=== PATIENT | female | born 1990 | race Caucasian/White ===

== ENCOUNTER 2016-11-05 20:17 | Emergency (ER) | payer OTHER ==
[~2016-11-05] VITALS: Ht 172.7 cm; Wt 143.4 kg
[~2016-11-05 20:17] MED LIST: ACET-1175 PO; IBUP-1050 PO
[2016-11-05 20:19] VITALS: TEMP 37; Ht 172.7 cm; Wt 143.4 kg
[2016-11-05] MEDS ORDERED: SODIUM CHLORIDE 0.9% 1000ML 1,000 ML IV STA (20:34)
[2016-11-05] MEDS ORDERED: ONDANSETRON INJ 2 MG/ML 2 ML VIAL IV STA (20:34)
--- NOTE | 2016-11-05 20:41 | EMERGENCY ROOM VISIT NOTE ---
History First contact with patient: 20:29 Chief Complaint: GI ASSESSMENT Stated Complaint: VOMITING,ABD CRAMPING Nursing Triage Summary: pt c/o abd pain and nausea/vomiting since this morning. states "i think i have food poisioning." states she ate something that "gave me food posioining last time. this cortez tray with chips and salsa." states "I was crying, I had to walk out of work." pt states n/v began at 11:30am, associates diarrhea. denies urinary symptoms. rates pain 6/10. History of Present Illness The patient is a 26 year old female who presents to the Emergency Room with complaints of nausea, vomiting and diarrhea. The patient states her symptoms started around noon. She states she developed abdominal cramping and vomiting. She states that she develops the cramping and has an episode of emesis and then feels better for a short time. She has also had diarrhea. She rates her discomfort as 6/10. She denies any fevers. She denies any pain in her chest or trouble breathing. She denies any urinary symptoms. She denies any known sick contacts. She denies any recent travel. She denies being at any Camp's or picnics recently. She denies recent antibiotic use. Review of Systems A 10 system review of systems was completed with positives and pertinent negatives listed in the HPI. Past Medical/Surgical History Medical Problems: (1) Tobacco Use Disorder Surgical Problems: (1) History of delivery (2) No history of previous surgery Social History Problems: (1) Morbid obesity with BMI of 45.0-49.9, adult Family History FH: hypertension Social History Smoking Status: Current Every Day Smoker Alcohol Use: none Drug Use: none Marital Status: Occupation Status: unemployed Current/Historical Medications Scheduled Ondasetron Odt (Zofran Odt), 4 MG SL Q6H Physical Exam Vital Signs Date Time Temp Pulse Resp B/P (MAP) Pulse Ox O2 Delivery O2 Flow Rate FiO2 11/05/16 22:07 67 18 118/54 97 11/05/16 20:19 37.0 86 18 96 Room Air Physical Exam VITALS: Vitals are noted on the nurse's note and reviewed by myself. Vital signs stable. GENERAL: This is a 26-year-old female, in no acute distress, nondiaphoretic, well-developed well-nourished. SKIN: The skin was without rashes, erythema, edema, or bruising. There is no tenting of the skin. Capillary reflex less than 2 seconds. HEAD: Normocephalic atraumatic. EARS: The external ears are normal in appearance. EYES: Pupils equal round and reactive to light and accommodation. Conjunctivae without injection, sclerae without icterus. Extraocular movements intact. NOSE: Patent, turbinates without inflammation or discharge. MOUTH: Mucous membranes moist. Tonsils are not enlarged. Pharynx without erythema or exudate. Uvula midline. Airway patent. Tongue does not deviate. NECK: Supple without nuchal rigidity. No lymphadenopathy. No thyromegaly. Cervical spine is nontender. No JVD. HEART: Regular rate and rhythm without murmurs gallops or rubs. LUNGS: Clear to auscultation bilaterally without wheezes, rales or rhonchi. No retractions or accessory muscle use. ABDOMEN: Positive bowel sounds x 4. Soft, nontender, without masses or organomegaly. MUSCULOSKELETAL: No muscle atrophy, erythema, or edema noted. Full range of motion in all extremities. Strength 5/5 throughout. NEURO: Patient was alert and oriented to person place and time. No focal neurological deficits. Medical Decision & Procedures Laboratory Results 11/05/16 20:45 Red Blood Count 4.72, Mean Corpuscular Volume 89.4, Mean Corpuscular Hemoglobin 30.5, Mean Corpuscular Hemoglobin Concent 34.1, Mean Platelet Volume 10.3, Neutrophils (%) (Auto) 83.4, Lymphocytes (%) (Auto) 11.3, Monocytes (%) (Auto) 4.7, Eosinophils (%) (Auto) 0.2, Basophils (%) (Auto) 0.1, Neutrophils # (Auto) 13.73, Lymphocytes # (Auto) 1.86, Monocytes # (Auto) 0.78, Eosinophils # (Auto) 0.03, Basophils # (Auto) 0.01 11/05/16 20:45 Test 11/05/16 20:45 11/05/16 21:37 White Blood Count 16.46 K/uL (4.8-10.8) Red Blood Count 4.72 M/uL (4.2-5.4) Hemoglobin 14.4 g/dL (12.0-16.0) Hematocrit 42.2 % (37-47) Mean Corpuscular Volume 89.4 fL (80-100) Mean Corpuscular Hemoglobin 30.5 pg (25-34) Mean Corpuscular Hemoglobin Concent 34.1 g/dl (32-36) Platelet Count 310 K/uL (130-400) Mean Platelet Volume 10.3 fL (7.4-10.4) Neutrophils (%) (Auto) 83.4 % Lymphocytes (%) (Auto) 11.3 % Monocytes (%) (Auto) 4.7 % Eosinophils (%) (Auto) 0.2 % Basophils (%) (Auto) 0.1 % Neutrophils # (Auto) 13.73 K/uL (1.4-6.5) Lymphocytes # (Auto) 1.86 K/uL (1.2-3.4) Monocytes # (Auto) 0.78 K/uL (0.11-0.59) Eosinophils # (Auto) 0.03 K/uL (0-0.5) Basophils # (Auto) 0.01 K/uL (0-0.2) RDW Standard Deviation 42.7 fL (36.4-46.3) RDW Coefficient of Variation 13.1 % (11.5-14.5) Immature Granulocyte % (Auto) 0.3 % Immature Granulocyte # (Auto) 0.05 K/uL (0.00-0.02) Anion Gap 4.0 mmol/L (3-11) Est Creatinine Clear Calc Drug Dose 201.2 ml/min Estimated GFR () 142.7 Estimated GFR (Non- 123.2 BUN/Creatinine Ratio 12.0 (10-20) Calcium Level 8.9 mg/dl (8.5-10.1) Total Bilirubin 0.3 mg/dl (0.2-1) Aspartate Amino Transf (AST/SGOT) 26 U/L (15-37) Alanine Aminotransferase (ALT/SGPT) 45 U/L (12-78) Alkaline Phosphatase 83 U/L (45-117) Total Protein 7.3 gm/dl (6.4-8.2) Albumin 3.5 gm/dl (3.4-5.0) Globulin 3.8 gm/dl (2.5-4.0) Albumin/Globulin Ratio 0.9 (0.9-2) Lipase 99 U/L (73-393) Urine Test NEG (NEG) Medications Administered Medications (Trade) Dose Ordered Sig/Timothy Route Start Time Stop Time Status Last Admin Dose Admin Sodium Chloride 1,000 ml @ 999 mls/hr Q1H1M STAT IV 11/05/16 20:34 11/05/16 21:34 DC 11/05/16 20:47 999 MLS/HR Ondansetron HCl (Zofran Inj) 4 mg NOW STAT IV 11/05/16 20:34 11/05/16 20:36 DC 11/05/16 20:52 4 MG Ondansetron HCl (ZOFRAN ODT 4MG Home Pack) 1 homepack UD ONCE PO 11/05/16 21:45 11/05/16 21:46 DC 11/05/16 22:03 1 HOMEPACK ED Course The patient was seen and examined. Previous visits were reviewed. The patient does not have a fever. She does have a leukocytosis of 16,000. She does not have any significant electrolyte abnormalities. The patient had some minimal diffuse tenderness on initial examination. She was hydrated with normal saline 1 L She was given 4 mg IV Zofran. She stated her symptoms had markedly improved. I did perform a repeat abdominal examination after the above treatment. The patient has no abdominal tenderness on examination. Particularly, there is no right lower quadrant tenderness or tenderness over McBurney's point. The patient was advised that if she develops localized tenderness particularly in the right lower quadrant she should return to the emergency department. She was given a prescription for Zofran. She should follow with her family doctor next week if she is not improving. She should return to the ER with any worsening symptoms. The case was discussed with who agrees with the assessment and treatment plan. Medical Decision DIFFERENTIAL DIAGNOSIS: Hepatitis, cholecystitis, cholangitis, biliary colic, pancreatitis, pneumonia, subdiaphragmatic abscess, appendicitis, inguinal hernia , nephrolithiasis, inflammatory bowel disease, mesenteric adenitis, peptic ulcer disease, GERD, gastritis, pancreatitis, myocardial infarction, pericarditis, ruptured aortic aneurysm, appendicitis, gastroenteritis, bowel obstruction, splenic infarct, diverticulitis, mesenteric ischemia, metabolic, peritonitis, among others. Medication Reconcilliation Current Medication List: was personally reviewed by me Blood Pressure Screening Patient's blood pressure: Normal blood pressure Blood pressure disposition: Did not require urgent referral Impression Primary Impression: Nausea vomiting and diarrhea Departure Information Dispostion Home / Self-Care Condition GOOD Prescriptions Ondasetron Odt (ZOFRAN ODT) 4 Mg Tab 4 MG SL Q6H for Nausea, #10 TAB Prov: Estrellita Cruz PA-C 11/05/16 Referrals No Doctor, Assigned (PCP) Forms HOME CARE DOCUMENTATION FORM, IMPORTANT VISIT INFORMATION, Work Instructions Return To Work: 3 days Patient Instructions ED Food Poison Or Gastroenteritis, ED Nausea Vomiting, [facility] Additional Instructions Zofran as prescribed, as needed for nausea and vomiting Return with pain that localizes to the right lower abdomen, fevers or generalized worsening symptoms
[2016-11-05 20:55] LABS: BASO % 0.1 %; BASO ABS # 0.01 K/uL (0-0.2); COMPLETE YES; EOS % 0.2 %; HEMATOCRIT 42.2 % (37-47); IG% 0.3 %; LYMPH % 11.3 %; LYMPH ABS # 1.86 K/uL (1.2-3.4); MEAN CELL VOLUME 89.4 fL (80-100); MEAN CORPUSCULAR HEMOGLOBIN 30.5 pg (25-34); MEAN CORPUSCULAR HGB CONC 34.1 g/dl (32-36); MEAN PLATELET VOLUME 10.3 fL (7.4-10.4); MONO % 4.7 %; NEUT % 83.4 %; PLATELET COUNT 310 K/uL (130-400); RED BLOOD COUNT 4.72 M/uL (4.2-5.4); WHITE BLOOD COUNT 16.46 K/uL (4.8-10.8)
[2016-11-05 21:15] LABS: CALCIUM 8.9 mg/dl (8.5-10.1); CREATININE 0.64 mg/dl (0.60-1.20); POTASSIUM 3.7 mmol/L (3.5-5.1)
[2016-11-05 21:18] LABS: ALB/GLOB RATIO 0.9 (0.9-2)
[2016-11-05] MEDS ORDERED: ONDA4TAB10 SL (21:42)
[2016-11-05] MEDS ORDERED: ONDANSETRON HOME PACK 4MG OD TAB PO ONE (21:45)
[2016-11-05 22:07] VITALS: BP 118/54; PULSE 67; O2SAT 97
== END 2016-11-05 22:07 | disposition home or self-care (01) ==
LOC: C.EDB 20:18 → C.EDC 22:07
DX: R11.2 Nausea with vomiting, unspecified (principal); R19.7 Diarrhea, unspecified; R07.9 Chest pain, unspecified; R10.9 Unspecified abdominal pain; F17.200 Nicotine dependence, unspecified, uncomplicated; E66.01 Morbid (severe) obesity due to excess calories; Z82.49 Family history of ischemic heart disease and other diseases of the circulatory system

== ENCOUNTER 2017-11-16 00:12 | Emergency (ER) | payer OTHER ==
[~2017-11-16] VITALS: Ht 172.7 cm; Wt 141.0 kg
[2017-11-16 00:18] VITALS: TEMP 36.7; Ht 172.7 cm; Wt 141.0 kg
--- NOTE | 2017-11-16 00:39 | EMERGENCY ROOM VISIT NOTE ---
History Report prepared by Debbie: Eric Mulligan Under the Supervision of: Dr. Maria Esther Hanna D.O. First contact with patient: 00:31 Chief Complaint: SHOULDER PAIN Stated Complaint: SHOULDER ARM COLLERBONE PAIN History of Present Illness The patient is a 27 year old female who presents to the Emergency Room with complaints of constant left shoulder pain beginning six weeks ago. The patient states that she developed left shoulder pain six weeks ago that she thought was a pulled muscle in her neck. She notes that her pain started between her shoulder blades. She reports that her pain shoots into her left collar bone and down the back of her left arm. The patient states that her pain worsens with movement but she notes that her pain is not as bad when she lies down. She denies any numbness/tingling. She reports that she does not have any prior injuries and trauma to her left shoulder. The patient states that she works 10- 14 hours every day, and she notes that she does a lot of lifting and pulling at work. She reports that she has been taking Tylenol occasionally for her symptoms. Source of History: patient Onset: six weeks ago Position: shoulder (left) Timing: constant Modifying Factors (Worsening): movement Modifying Factors (Relieving): other (lying down) Note: The patient also complains of pain in her left collar bone and of left arm pain. She denies any numbness/tingling. Review of Systems See HPI for pertinent positives & negatives. A total of 10 systems reviewed and were otherwise negative. Past Medical & Surgical Medical Problems: (1) Tobacco Use Disorder Surgical Problems: (1) History of delivery (2) No history of previous surgery Social History Problems: (1) Morbid obesity with BMI of 45.0-49.9, adult Family History FH: hypertension Social History Smoking Status: Current Every Day Smoker Alcohol Use: none Drug Use: none Marital Status: single Housing Status: lives with family Occupation Status: employed Current/Historical Medications No Active Prescriptions or Reported Meds Allergies Coded Allergies: Amoxicillin (Verified Allergy, Mild, UNKNOWN, 11/16/17) Clavulanic Acid (Verified Allergy, Mild, UNKNOWN, 11/16/17) Latex (Verified Allergy, Unknown, RASH, 11/16/17) Sulfa Drugs (Verified Allergy, Unknown, HIVES, 11/16/17) Physical Exam Vital Signs Date Time Temp Pulse Resp B/P (MAP) Pulse Ox O2 Delivery O2 Flow Rate FiO2 11/16/17 01:41 83 18 145/91 98 11/16/17 00:18 36.7 72 20 130/81 98 Room Air Physical Exam GENERAL: alert, well appearing, well nourished, no distress, non-toxic, obese. EYE EXAM: normal conjunctiva, PERRL and EOM's grossly intact OROPHARYNX: no exudate, no erythema, lips, buccal mucosa, and tongue normal and mucous membranes are moist NECK: supple, no nuchal rigidity, no adenopathy, non-tender, full ROM, no evidence of trauma. LUNGS: Clear to auscultation. Normal chest wall mechanics HEART: no murmurs, S1 normal and S2 normal ABDOMEN: abdomen soft, non-tender, normo-active bowel sounds, no masses, no rebound or guarding. BACK: Back is symmetrical on inspection and there is no deformity, no midline tenderness, no CVA tenderness. SKIN: no rashes and no bruising UPPER EXTREMITIES: upper extremities are grossly normal. Normal pulses bilaterally, no evidence of trauma, no joint effusions, pain with palpation at the AC joint and along the trapezius in the posterior shoulder. No pain with palpation of humeral head or more distal upper extremity. Full ROM but pain during active and passing ROM testing, empty can test negative, normal sensation. LOWER EXTREMITIES: No pitting edema. NEURO EXAM: Normal sensorium, cranial nerves II-XII grossly intact, normal speech, no gross weakness of arms, no gross weakness of legs. Medical Decision & Procedures ER Provider Diagnostic Interpretation: Radiology results have been interpreted by and reviewed by me. 3 VIEW LEFT SHOULDER X-RAY: No fracture, dislocation, and AC separation. 1 VIEW CHEST X-RAY: No cardiomegaly, effusions, wide mediastinum, focal consolidation, pneumothorax , and pulmonary edema. Medications Administered Medications (Trade) Dose Ordered Sig/Timothy Route Start Time Stop Time Status Last Admin Dose Admin Ketorolac Tromethamine (Toradol Inj) 60 mg NOW STAT IM 11/16/17 00:44 11/16/17 00:46 DC 11/16/17 00:54 60 MG Lidocaine (Lidoderm Patch 5%) 1 patch NOW STAT TD 11/16/17 00:44 11/16/17 00:46 DC 11/16/17 00:55 1 PATCH ECG Per My Interpretation Indication: back/shoulder pain Rate (beats per minute): 82 Rhythm: sinus rhythm Findings: no acute ischemic change, no ectopy, other (Normal axis, normal intervals) ED Course 0032: The patient was evaluated in room B6. A complete history and physical exam was performed. 0044: Lidocaine 1 patch TD, Toradol Inj 60mg IM 0127: Upon reevaluation, the patient is feeling better. I discussed the findings and the treatment plan with the patient. She verbalizes agreement and understanding. The patient was discharged home. Medical Decision Differential diagnoses include: muscle strain, muscle spasm, rotator cuff injury , cervical radiculopathy, trauma, brachial plexitis, and AC separation as well as others. Patient well-appearing here despite complaints. No recent trauma. No weakness , no paresthesias to suggest nerve impingement or cervical radiculopathy. Likely chronic overuse injury or musculoskeletal strain due to repetitive use at work. Discussed with patient limiting lifting, follow-up with family doctor , possible need for orthopedics evaluation if symptoms did not improve, symptoms to watch and return for, she verbalized understanding and was agreeable with plan. I do not suspect occult cardiac or pulmonary pathology, do not suspect occult vascular pathology. Medication Reconcilliation Current Medication List: was personally reviewed by me Blood Pressure Screening Patient's blood pressure: Elevated blood pressure Blood pressure disposition: Elevated BP felt to be situational Impression Primary Impression: Left shoulder pain Additional Impression: Upper back strain Scribe Attestation The scribe's documentation has been prepared under my direction and personally reviewed by me in its entirety. I confirm that the note above accurately reflects all work, treatment, procedures, and medical decision making performed by me. Departure Information Dispostion Home / Self-Care Prescriptions No Active Prescriptions or Reported Meds Referrals No Doctor, Assigned (PCP) Forms HOME CARE DOCUMENTATION FORM, IMPORTANT VISIT INFORMATION Patient Instructions My [facility] [employer] Additional Instructions Please try to limit any lifting with your left arm. You may use Tylenol and ibuprofen as needed for pain. You may also apply the pain patch, which is now [id number], to the area of the worst pain. If you take ibuprofen/Advil/ Aleve/Motrin, these are all types of anti-inflammatories, make sure you are drinking plenty of water and do not take them on an empty stomach. If you develop increasing neck pain, chest pain, trouble breathing, numbness or tingling, feel the arm is weaker you unable to use it, develop swelling of the arm, redness or rash of the arm, you have any other new concerns, please return the emergency room. Problem Qualifiers Primary Impression: Left shoulder pain Chronicity: chronic Qualified Codes: M25.512 - Pain in left shoulder; G89.29 - Other chronic pain Additional Impression: Upper back strain Encounter type: initial encounter Qualified Codes: S29.012A - Strain of muscle and tendon of back wall of thorax, initial encounter
[2017-11-16] MEDS ORDERED: LIDODERM (LIDOCAINE) PATCH 5% TD STA (00:44)
[2017-11-16] MEDS ORDERED: KETOROLAC TROMETHAMINE 60 MG/2 ML VIAL IM STA (00:44)
[2017-11-16 01:41] VITALS: BP 145/91; PULSE 83; O2SAT 98
--- NOTE | 2017-11-16 06:54 | DIAGNOSTIC IMAGING REPORT ---
CHEST ONE VIEW PORTABLE CLINICAL HISTORY: chest pain pain COMPARISON STUDY: 10/21/2011 FINDINGS: The bones soft tissues and hemidiaphragms are normal. The cardiomediastinal silhouette is normal. The lungs are clear. The pulmonary vasculature is normal. IMPRESSION: Negative chest. The above report was generated using voice recognition software. It may contain grammatical, syntax or spelling errors. Electronically signed by: Faisal Ricardo M.D. 11/16/2017 6:52 AM Dictated Date/Time: 11/16/2017 6:52 AM
--- NOTE | 2017-11-16 06:55 | DIAGNOSTIC IMAGING REPORT ---
L SHOULDER MIN 2 VIEWS ROUTINE CLINICAL HISTORY: pain pain COMPARISON: None. DISCUSSION: The bones and joint spaces appear intact. There is no evidence of fracture, dislocation or bony disease. There is no evidence for soft tissue swelling. IMPRESSION: Negative study. The above report was generated using voice recognition software. It may contain grammatical, syntax or spelling errors. Electronically signed by: Faisal Ricardo M.D. 11/16/2017 6:54 AM Dictated Date/Time: 11/16/2017 6:53 AM
== END 2017-11-16 01:42 | disposition home or self-care (01) ==
LOC: C.EDB 00:13
DX: M25.512 Pain in left shoulder (principal); S29.012A Strain of muscle and tendon of back wall of thorax, initial encounter; X58.XXXA Exposure to other specified factors, initial encounter; E66.9 Obesity, unspecified; F17.200 Nicotine dependence, unspecified, uncomplicated; Z88.1 Allergy status to other antibiotic agents; Z88.2 Allergy status to sulfonamides; Z91.040 Latex allergy status

== ENCOUNTER 2018-12-29 08:23 | Observation (INO) ==
[2018-12-29] MEDS ORDERED: HYDROmorphone INJ 0.5 MG/0.5 ML SYR IV STA ×2 (09:43→11:42)
[2018-12-29] MEDS ORDERED: LORazepam 0.5 MG/1 ML VIAL IV STA (09:43)
[2018-12-29] MEDS ORDERED: KETOROLAC 30 MG/ML VIAL IV STA (09:43)
[2018-12-29] MEDS ORDERED: ONDANSETRON INJ 2 MG/ML 2 ML VIAL IV STA (09:43)
[2018-12-29 10:06] LABS: Basophils # (auto) 0.01 K/uL (0-0.2); Basophils % (auto) 0.1 %; Eosinophils # (auto) 0.03 K/uL (0-0.5); Eosinophils % (auto) 0.3 %; Hematocrit (blood only) 38.3 % (37-47); Hemoglobin 12.7 g/dL (12.0-16.0); Immature Granulocytes # (auto) 0.01 K/uL (0.00-0.02); Immature Granulocytes % (auto) 0.1 %; Lymphocytes # (auto) 1.95 K/uL (1.2-3.4); Lymphocytes % (auto) 20.2 %; Mean Corpuscular Hgb Conc 33.2 g/dL (32-36); Mean Corpuscular Volume 90.3 fL (80-100); Mean Platelet Volume 9.7 fL (7.4-10.4); Monocytes # (auto) 0.82 K/uL (0.11-0.59); Monocytes % (auto) 8.5 %; Neutrophils # (auto) 6.85 K/uL (1.4-6.5); Neutrophils % (auto) 70.8 %; Platelet Count 327 K/uL (130-400); RDW Coefficient of Variation 13.2 % (11.5-14.5); RDW Standard Deviation 43.3 fL (36.4-46.3); Red Blood Count 4.24 M/uL (4.2-5.4); White Blood Count 9.67 K/uL (4.8-10.8)
[2018-12-29 10:19] LABS: Pregnancy Test, Serum Negative (Negative)
[2018-12-29 10:25] LABS: BUN Creatinine Ratio 11.9 (10-20); Blood Urea Nitrogen 8 mg/dl (7-18); Carbon Dioxide 22 mmol/L (21-32); Chloride 110 mmol/L (98-107); Glucose 108 mg/dl (70-99); Potassium 3.5 mmol/L (3.5-5.1); Sodium 139 mmol/L (136-145)
[2018-12-29] MEDS ORDERED: DEXAMETHASONE SOD INJ 4 MG/ML VIAL IV STA (12:22)
[2018-12-29] MEDS ORDERED: LIDOCAINE 5% 1 PATCH TD SCH (13:30)
--- NOTE | 2018-12-29 13:46 | History & Physical Report ---
Date of Service December 29, 2018 Assessment & Plan (1) Intractable low back pain: - Presented with low back pain -- possibly related to lumbar strain vs. herniated disc. - XR of L-spine and right hip negative; will order MRI of lumbar spine. - ESR and CRP both pending. - Ortho spine, Dr. Merchant, consulted. - Tylenol 1 gm PO q8hr scheduled; Toradol prn mod pain and Dilaudid 0.5 mg IV q6hr prn severe pain. - K-pad for heat application to lower spine/back; Lidocaine patch for topical p ain relief. - Will start Gabapentin 100 mg BID for radiculopathy -- has been on medication in the past. Titrate as tolerated. - Received Decadron 10 mg IV in the ER; continue Decadron 8 mg IV q8hr over next 24 hours. (2) Lumbar disc disease with radiculopathy: - As noted above. (3) Obesity: - Encourage weight loss and exercise. - Pt. reports she has been exercising daily since October. (4) DVT prophylaxis: - SCDs; Lovenox daily. Dispo: Med/surg for evaluation of low back pain and pain control. History of Present Illness Chief Complaint: Back pain Primary Care Provider: Samy Sky MD Ms. Aragon is a 28 year old female with past medical history of and tubal ligation who presented to the ER with intractable back pain. She was initially diagnosed with back pain & right leg radiculopathy in January 2018. Patient had multiple ER visits last fall and completed a steroid taper along with a short course of Gabapentin. MRI of L-spine on 02/12/18 showed disc extrusion at L4-5 with slight caudal migration with severe effacement of right lateral recess and mass effect on right L5 and S1 nerve roots. She was also evaluated by Dr. Guo during previous visits. Pt. reports back pain had improved overall. She has been exercising daily -- currently doing the 21 day fix work out and usually works out every day of the week. She did yoga yesterday and did not have any back pain or radiculopathy symptoms. Pt. woke up this morning at 2:30 am with severe low back and right hip pain. Pain is constant and radiates down her right leg to the right 5th toe. She has trouble ambulating due to right leg pain. Pain is described as a sharp, shooting pain in her right leg and constant dull pressure in her right hip. Denies chest pain, SOB, constipation (last BM was this morning), urinary retention or incontinence, saddle anesthesia, dysuria or hematuria, LE edema. ER course: Pt. received Dilaudid 0.5 mg IV, Toradol 10 mg IV, Dexamethasone 10 mg IV, Ativan 0.5 mg IV, Zofran 4 mg IV with no improvement. Will be admitted for further evaluation of lumbar spinal pain & radiculopathy. Allergies Allergy/AdvReac Type Severity Reaction Status Date / Time latex Allergy Severe Hives Verified 12/29/18 10:29 Sulfa (Sulfonamide Allergy Severe swelling Verified 12/29/18 10:29 Antibiotics) of throat amoxicillin Allergy Mild UNKNOWN Verified 12/29/18 10:29 clavulanic acid Allergy Mild UNKNOWN Verified 12/29/18 10:29 Home Medications Home Medications Medication Instructions Recorded Confirmed Type multivitamin 1 tab PO QAM 01/18/18 01/02/19 History acetaminophen [Tylenol Extra 1,000 mg PO Q8H PRN #1 tab 01/01/19 01/02/19 Rx Strength] baclofen 10 mg PO TID #20 tab 01/01/19 01/02/19 Rx gabapentin 600 mg PO BID #60 tab 01/01/19 01/02/19 Rx hydrocodone-acetaminophen [[place]] 1 tab PO Q6H PRN #20 tab 01/01/19 01/02/19 Rx lidocaine 1 patch TRANSDERMAL QAM #15 ea 01/01/19 01/02/19 Rx methylprednisolone 4 mg PO QID #10 tab 01/01/19 01/02/19 Rx Past Med/Surg History Medical History Abdominal cramping (Acute 09/15/13) Insect bite (Acute) Left lumbar radiculopathy (Acute) Lumbar back pain with radiculopathy affecting right lower extremity (Acute) Morbid obesity with BMI of 45.0-49.9, adult (Chronic) labor (Acute 10/01/13) Right lumbar radiculitis (Acute) Encounter for smoking cessation counseling (Inactive) Hip pain (Inactive) Leg pain (Inactive) Surgical History History of delivery Family History Other No significant family history Social History Preferred Language: [place] Verdean Communication Ability: Effective Beliefs That Will Affect Care: None marital status: Single Current Living Situation: Family Current Living Situation Comment: "4 kids, Boyfriend, and I" current occupational status: unemployed Feels Safe at Home: Yes Smoking Status: Former smoker Tobacco Type: cigarettes ; Age Started Using Tobacco: 18 ; Age Quit Using Tobacco: 28 ; packs per day: 1 ; Hx Alcohol Use: No Hx Substance Use: No Review of Systems Review of Systems: All systems reviewed & are unremarkable except as noted in HPI & below Constitutional: + fatigue and + weakness; no fever, no chills and no anorexia Respiratory: no cough, no dyspnea, no dyspnea on exertion and no wheezing Cardiovascular: no chest pain, no palpitations, no lightheadedness and no edema Gastrointestinal: no abdominal pain, no nausea, no vomiting and no constipation Genitourinary: no dysuria, no difficulty urinating, no urinary frequency, no urinary incontinence and no hematuria Musculoskeletal: + back pain, + radicular pain and + limited range of motion; no joint pain, no myalgia and no body aches Integumentary: no non-healing lesions Neurologic: + numbness and + radiating pain; no gait abnormality, no dizziness and no headache(s) Psychiatric: + anxiety Physical Exam Physical Exam: General: Obese female, in no acute distress. HEENT: NC/AT; PERRLA with EOMI; Vansant conjunctiva, MMM. No erythema of posterior pharynx Neck: Supple and nontender Cardiac: RRR Lungs: CTA bilaterally Abdomen: Bowel normoactive X 4; Nontender to palpation Back: Tender to palpation over right lower back, no specific area identified. Extremities: Warm. No edema present. Neuro: +2/5 muscle strength on LLE, +1/5 muscle strength on RLE. No other deficits noted on exam. Skin: No rash Results & Data Vital Signs (Past 12 Hours) Vital Signs Temp Pulse Pulse Resp BP BP Pulse Ox 12/29/18 13:27 72 18 126/80 97 12/29/18 11:54 76 16 142/73 H 97 12/29/18 11:27 66 18 134/87 95 12/29/18 10:20 99 12/29/18 10:17 74 20 136/77 97 12/29/18 08:47 36.5 C 98 H 20 102/59 L 100 Laboratory Results Lab Results 12/29/18 12/29/18 12/29/18 Range/Units 09:51 09:51 09:51 WBC 9.67 (4.8-10.8) K/uL RBC 4.24 (4.2-5.4) M/uL Hgb 12.7 (12.0-16.0) g/dL Hct 38.3 (37-47) % MCV 90.3 (80-100) fL MCH 30.0 (25-34) pg MCHC 33.2 (32-36) g/dL RDW Std Deviation 43.3 (36.4-46.3) fL RDW Coeff of Gracia 13.2 (11.5-14.5) % Plt Count 327 (130-400) K/uL MPV 9.7 (7.4-10.4) fL Immature Gran % (Auto) 0.1 % Neut % (Auto) 70.8 % Lymph % (Auto) 20.2 % [place] % (Auto) 8.5 % Eos % (Auto) 0.3 % Baso % (Auto) 0.1 % Immature Gran # (Auto) 0.01 (0.00-0.02) K/uL Neut # (Auto) 6.85 H (1.4-6.5) K/uL Lymph # (Auto) 1.95 (1.2-3.4) K/uL [place] # (Auto) 0.82 H (0.11-0.59) K/uL Eos # (Auto) 0.03 (0-0.5) K/uL Baso # (Auto) 0.01 (0-0.2) K/uL Sodium 139 (136-145) mmol/L Potassium 3.5 (3.5-5.1) mmol/L Chloride 110 H (98-107) mmol/L Carbon Dioxide 22 (21-32) mmol/L Anion Gap 7.0 (3-11) BUN 8 (7-18) mg/dl Creatinine 0.68 (0.6-1.2) mg/dl Est Cr Clr Drug Dosing Not Reportable Est GFR ( Amer) 138.0 Est GFR (Non-Af Amer) 119.0 BUN/Creatinine Ratio 11.9 (10-20) Glucose 108 H (70-99) mg/dl Calcium 9.0 (8.5-10.1) mg/dl HCG, Qual Negative (Negative) Code Status & VTE Plan Code Status FULL CODE VTE Prophylaxis Plan VTE Prophylaxis will be ordered: Yes Supervising Physician Co-Signing Physician Notes During my face to face encounter, I performed a history and physical examination on the patient. I answered all of the patient s questions and concerns. Discussed admission plan with patient and APC. Will admit patient for low back pain. Will consult ortho spine surgeon. Will get an MRI to assess for disc herniation. PG Care Time/CCT Total # of Minutes Spent Total Time Spent with Patient: Total time spent is greater than 50% in coordinat ion of care (as documented) at patient's floor/unit and/or counseling patient:
--- NOTE | 2018-12-29 14:18 | XRay Report ---
RIGHT HIP 2 VIEWS HISTORY: Right hip pain COMPARISON: Right hip 01/17/2018. FINDINGS: There is no fracture or dislocation. Soft tissues are unremarkable. Cartilage spaces are ma intained. The visualized pelvic bones are intact. IMPRESSION: No significant abnormality within the right hip. Electronically signed by: Jim Wright M.D. 12/29/2018 2:17 PM
--- NOTE | 2018-12-29 14:20 | XRay Report ---
LUMBAR SPINE 3 VIEWS HISTORY: Back pain COMPARISON: Lumbar spine 03/13/2018. FINDINGS: There is no fracture. No subluxation. Mild disc space at L4-L5 and L5-S1. The sacrum appea rs intact. Multiple gallstones are again noted. IMPRESSION: 1. No fracture or subluxation within the lumbar spine. 2. Mild degenerative disc disease at L4-L5 and L5-S1. 3. Cholelithiasis. Electronically signed by: Jim Wright M.D. 12/29/2018 2:19 PM
[2018-12-29] MEDS ORDERED: HYDROmorphone INJ 0.5 MG/0.5 ML SYR IV PRN ×2 (14:55→18:28)
[2018-12-29] MEDS ORDERED: ONDANSETRON INJ 2 MG/ML 2 ML VIAL IV PRN (14:55)
--- NOTE | 2018-12-29 16:15 | Emergency Department Note ---
Entered by Mason Baez acting as a scribe for History of Present Illness General Chief complaint: Back Injury/Pain Stated complaint: SEVERE BACK PAIN INTO RT LEG Source: patient History of Present Illness Onset (ago): hour(s) (7.5) Location: back and right Pain Consistency: + constant Maximum Pain Intensity: 10 Quality: + sharp Relieved By: + other (laying down) Exacerbated By: + movement and + other (sitting up) Associated symptoms: + denies other symptoms (loss of feeling, losing control of her bowels/bladder, trouble urinating, fevers, lifting anything heavy) and + other (right leg pain that shoots down to her toes) The patient is a 28 y/o female who presents to the ED w/ CC of constant, sharp, right sided back pain that shoots down to her right toes beginning 7.5 hours ago. The patient states she had a herniated disk last year and it feels similar to that. She denies sleeping on a soft mattress and lifting anything heavy. The patient notes it feels like her leg is tingling and had not lost feeling. She states laying down makes her symptoms better, and sitting up worsens her pain in addition to movement. The patient reports she has taken Tylenol for her symptoms, but it has not helped her symptoms. She notes last year she started seeing a physician for her herniated disk and was treated with gabapentin and steroids. She did have physical therapy and her back pain seemed to be better. The patient states the gabapentin helped her pain as well. She denies the chance of , losing control of her bowel or bladder, trouble urinating, fever, and a history of back surgery. Home Medications Home Medications Medication Instructions Recorded Confirmed Type multivitamin 1 tab PO QAM 01/18/18 12/29/18 History Allergies Allergy/AdvReac Type Severity Reaction Status Date / Time latex Allergy Severe Hives Verified 12/29/18 10:29 Sulfa (Sulfonamide Allergy Severe swelling Verified 12/29/18 10:29 Antibiotics) of throat amoxicillin Allergy Mild UNKNOWN Verified 12/29/18 10:29 clavulanic acid Allergy Mild UNKNOWN Verified 12/29/18 10:29 Past Med/Surg History Medical History Abdominal cramping (Acute 09/15/13) Insect bite (Acute) Left lumbar radiculopathy (Acute) Lumbar back pain with radiculopathy affecting right lower extremity (Acute) Morbid obesity with BMI of 45.0-49.9, adult labor (Acute 10/01/13) Right lumbar radiculitis (Acute) Encounter for smoking cessation counseling (Inactive) Hip pain (Inactive) Leg pain (Inactive) Surgical History History of delivery Family History Other No significant family history Social History Preferred Language: Azerbaijani marital status: Single Current Living Situation: Family current occupational status: unemployed Feels Safe at Home: Yes Smoking Status: Former smoker Tobacco Type: cigarettes ; Age Started Using Tobacco: 18 ; Age Quit Using Tobacco: 28 ; packs per day: 1 ; Years Smoked: 10 ; Hx Alcohol Use: No Review of Systems See HPI for pertinent positives & negatives. and A total of 10 systems reviewed and were otherwise negative Physical Exam Vital Signs Vital Signs - 24 hr 12/29/18 08:47 12/29/18 10:17 12/29/18 10:20 Temperature 36.5 C Temperature Source Oral Sepsis Recent Fever Within 48 Hours No Sepsis Action Taken by Nursing No Action Required Pulse Rate 98 H Pulse Rate [Left Finger] 74 Pulse Rhythm [Left Finger] Regular Pulse Strength [Left Finger] Normal Respiratory Rate 20 20 Respiratory Effort / Characteristics Non-Labored Non-Labored Spontaneous Respiratory Depth Normal Normal Respiratory Pattern Regular Blood Pressure 102/59 L Blood Pressure [Right Arm] 136/77 Blood Pressure Mean 73 Blood Pressure Mean [Right Arm] 96 Blood Pressure Position [Right Arm] Sitting Pulse Oximetry 100 97 99 Oxygen Delivery Method Room Air Room Air Nasal Cannula Oxygen Flow Rate 2 12/29/18 11:27 12/29/18 11:54 Temperature Temperature Source Sepsis Recent Fever Within 48 Hours Sepsis Action Taken by Nursing Pulse Rate Pulse Rate [Left Finger] 66 76 Pulse Rhythm [Left Finger] Pulse Strength [Left Finger] Respiratory Rate 18 16 Respiratory Effort / Characteristics Non-Labored Non-Labored Respiratory Depth Normal Normal Respiratory Pattern Regular Regular Blood Pressure Blood Pressure [Right Arm] 134/87 142/73 H Blood Pressure Mean Blood Pressure Mean [Right Arm] 102 96 Blood Pressure Position [Right Arm] Pulse Oximetry 95 97 Oxygen Delivery Method Room Air Room Air Oxygen Flow Rate Constitutional: Vital signs reviewed. Eyes: Pupils are equal round reactive to light. Conjunctiva are noninjected. ENT: Pharynx is clear without erythema or exudate. Mucous membranes are moist. Neck supple without meningeal signs. Respiratory: Clear to auscultation bilaterally. Breath sounds are equal bilaterally. Cardiovascular: Regular rate and rhythm. No rubs or gallops. GI: Soft, nondistended and nontender. Bowel sounds are present. Musculoskeletal: No peripheral edema. No lower extremity tenderness. Integumentary: No cyanosis. Neurological: The patient is awake and alert. No focal deficits. Positive straight leg raise bilaterally, worse on the right side. DTR are 2+ in the knees and ankles. Sensation and muscle strength intact in both lower extremities. Psychiatric: Normal affect. Course 0936: Past medical records reviewed. The patient was evaluated in room B11B. A complete history and physical exam was performed. 1141: I reevaluated the patient. She is awake and alert with normal O2 saturatio n. She is requesting more pain mediation. The patient was able to get up and go to the bathroom with assistance only. 1221: The patient's pain is not much better on reevaluation. The tingling in her legs has resolved. I discussed the test results and recommended a hospitalist evaluation. She is in agreement with the treatment plan. 1240: I discussed the patient's case with Dr. Lowe, [facility] Hospitalist. The patinet will be evaluated for further management and care. Administered Medications Discontinued Medications Dexamethasone (Decadron) 10 mg IV NOW STA Stop: 12/29/18 12:23 Last Admin: 12/29/18 13:21 Dose: 10 mg Documented by: [id number] Hydromorphone HCl (Dilaudid) 0.5 mg IV NOW STA Stop: 12/29/18 09:44 Last Admin: 12/29/18 10:04 Dose: 0.5 mg Documented by: [id number] Hydromorphone HCl (Dilaudid) 0.5 mg IV NOW STA Stop: 12/29/18 11:43 Last Admin: 12/29/18 11:53 Dose: 0.5 mg Documented by: [id number] Lorazepam (Ativan) 0.5 mg in 1 mls @ 1 mls/min IV NOW STA Stop: 12/29/18 09:44 Last Admin: 12/29/18 10:04 Dose: 1 mls/min Documented by: [id number] Ketorolac Tromethamine (Toradol) 10 mg IV NOW STA Stop: 12/29/18 09:44 Last Admin: 12/29/18 10:03 Dose: 10 mg Documented by: [id number] Ondansetron HCl (Zofran) 4 mg IV NOW STA Stop: 12/29/18 09:44 Last Admin: 12/29/18 10:03 Dose: 4 mg Documented by: [id number] Medical Decision Making Differential Diagnosis Differential diagnosis includes: lumbar disk disease, radiculopathy, disk hernia, strain, spinal stenosis. Medical Records Attestation: I reviewed the patient's medical records. I did perform a limited focused review of portions of the patient's old chart on the electronic medical record. The patient had an MRI of the L-spine in February 2018 which showed a prominent disk extrusion with mass effect on to L5-S1 nerve roots. Home Medications Current Medication List: was personally reviewed by me Laboratory Data Attestation: I reviewed the patient's lab results. Result diagrams: 12/29/18 09:51 12/29/18 09:51 Lab Results 12/29/18 12/29/18 12/29/18 Range/Units 09:51 09:51 09:51 WBC 9.67 (4.8-10.8) K/uL RBC 4.24 (4.2-5.4) M/uL Hgb 12.7 (12.0-16.0) g/dL Hct 38.3 (37-47) % MCV 90.3 (80-100) fL MCH 30.0 (25-34) pg MCHC 33.2 (32-36) g/dL RDW Std Deviation 43.3 (36.4-46.3) fL RDW Coeff of Gracia 13.2 (11.5-14.5) % Plt Count 327 (130-400) K/uL MPV 9.7 (7.4-10.4) fL Immature Gran % (Auto) 0.1 % Neut % (Auto) 70.8 % Lymph % (Auto) 20.2 % [place] % (Auto) 8.5 % Eos % (Auto) 0.3 % Baso % (Auto) 0.1 % Immature Gran # (Auto) 0.01 (0.00-0.02) K/uL Neut # (Auto) 6.85 H (1.4-6.5) K/uL Lymph # (Auto) 1.95 (1.2-3.4) K/uL [place] # (Auto) 0.82 H (0.11-0.59) K/uL Eos # (Auto) 0.03 (0-0.5) K/uL Baso # (Auto) 0.01 (0-0.2) K/uL ESR (0-21) mm/hr Sodium 139 (136-145) mmol/L Potassium 3.5 (3.5-5.1) mmol/L Chloride 110 H (98-107) mmol/L Carbon Dioxide 22 (21-32) mmol/L Anion Gap 7.0 (3-11) BUN 8 (7-18) mg/dl Creatinine 0.68 (0.6-1.2) mg/dl Est Cr Clr Drug Dosing Not Reportable Est GFR ( Amer) 138.0 Est GFR (Non-Af Amer) 119.0 BUN/Creatinine Ratio 11.9 (10-20) Glucose 108 H (70-99) mg/dl Calcium 9.0 (8.5-10.1) mg/dl C-Reactive Protein (0-0.29) mg/dl HCG, Qual Negative (Negative) 12/29/18 12/29/18 Range/Units 09:51 09:51 WBC (4.8-10.8) K/uL RBC (4.2-5.4) M/uL Hgb (12.0-16.0) g/dL Hct (37-47) % MCV (80-100) fL MCH (25-34) pg MCHC (32-36) g/dL RDW Std Deviation (36.4-46.3) fL RDW Coeff of Gracia (11.5-14.5) % Plt Count (130-400) K/uL MPV (7.4-10.4) fL Immature Gran % (Auto) % Neut % (Auto) % Lymph % (Auto) % [place] % (Auto) % Eos % (Auto) % Baso % (Auto) % Immature Gran # (Auto) (0.00-0.02) K/uL Neut # (Auto) (1.4-6.5) K/uL Lymph # (Auto) (1.2-3.4) K/uL [place] # (Auto) (0.11-0.59) K/uL Eos # (Auto) (0-0.5) K/uL Baso # (Auto) (0-0.2) K/uL ESR 29 H (0-21) mm/hr Sodium (136-145) mmol/L Potassium (3.5-5.1) mmol/L Chloride (98-107) mmol/L Carbon Dioxide (21-32) mmol/L Anion Gap (3-11) BUN (7-18) mg/dl Creatinine (0.6-1.2) mg/dl Est Cr Clr Drug Dosing Est GFR ( Amer) Est GFR (Non-Af Amer) BUN/Creatinine Ratio (10-20) Glucose (70-99) mg/dl Calcium (8.5-10.1) mg/dl C-Reactive Protein 0.68 H (0-0.29) mg/dl HCG, Qual (Negative) Blood Pressure Blood Pressure Findings: Normal blood pressure Blood Pressure Disposition: did not require urgent referral MDM Narrative I did evaluate the patient as noted above. The patient is presenting with severe right-sided back pain with radiculopathy down her right leg. She does not have any signs of cauda equina syndrome. She has normal strength and sensation in her legs as well as DTRs. She has no urinary incontinence or retention. She denies any fevers. She has a history of herniated disc on the right side based on prior MRI. There is no current indication for an emergent MRI. IV access was established. The patient was placed on a continuous brine maker. I did treat her with Dilaudid, Ativan and Zofran IV. She was also given Toradol IV. I did order and review the patient's blood work as noted in the electronic medical record. Her white count is not elevated. Labs are unremarkable. I did reassess the patient. She is still having pain. I did treat her with Dilaudid and Decadron IV. I did later reassess the patient and the patient still has significant pain. She will therefore need to be hospitalized for further evaluation. She did have a brief episode of dropping her O2 saturations after her first set of medications and was briefly placed on oxygen but recovered quickly. I did discuss the case with the hospitalist and foster care case manager for further management. Impression & Plan Intractable low back pain, Lumbar disc disease with radiculopathy Discharge Plan Visit Data *Final* Discharge Date/Time: 12/29/18 14:19 Chief Complaint: Back Injury/Pain Stated Complaint: SEVERE BACK PAIN INTO RT LEG ED Provider: David Krause Discharge Problem: Intractable low back pain, Lumbar disc disease with radiculopathy Patient Disposition: Admitted As Inpatient Discharge Instructions Interventions: ED Discharge Assessment Last Done: 12/29/18 14:19 The angelesibe's documentation has been prepared under my direction and personally reviewed by me in its entirety. I confirm that the note above accurately reflects all work, treatment, procedures, and medical decision making performed by me.
[2018-12-29] MEDS: GABAPENTIN 100 MG CAP PO SCH ×2 (16:56→21:01)
[2018-12-29] MEDS: LIDOCAINE 5% 1 PATCH TD SCH (16:57)
[2018-12-29] MEDS: ACETAMINOPHEN 500 MG TAB PO SCH ×2 (17:02→21:06)
[2018-12-29] MEDS: DEXAMETHASONE SOD PHOSPHATE 8 MG in SYRINGE 0 ML IV SCH (17:04)
[2018-12-29] MEDS: KETOROLAC 30 MG/ML VIAL IV PRN (18:45)
[2018-12-29 19:36] LABS: Appearance Urine Cloudy (Clear); Bacteria Urine Automated Negative (Negative); Bilirubin Urine Negative (Negative); Blood Urine Negative (Negative); Color Urine Yellow; Epithelial Cell Urine Auto >30 /lpf (0-5); Glucose Urine UA Negative (Negative); Ketones Urine 2+ (Negative); Leukocyte Esterase Urine Negative (Negative); Nitrite Urine Negative (Negative); Protein Urine Negative (Negative); RBC Urine Automated 0-4 /hpf (0-4); Specific Gravity Urine 1.021 (1.000-1.030); Urobilinogen Urine Negative (Negative)
[2018-12-29] MEDS: ENOXAPARIN INJ 30 MG/0.3 ML SYR SQ SCH (21:02)
[2018-12-29] MEDS: LORazepam 0.5 MG TAB PO PRN (21:06)
--- NOTE | 2018-12-29 23:18 | Progress Note ---
Date of Service December 29, 2018 Received page from the patient's nurse that the patient continued to have severe low back pain as well as nausea and vomiting. On brief chart review, patient was admitted with intractable low back pain. Has a history of known disc disease in February 2018. An MRI of the lumbar spine was ordered on admission but has not yet been performed. Spoke with patient at bedside. She notes that her pain was relatively well controlled since February until the very acute onset of worsening earlier today. Presently, she continues to deny any changes in bowel or bladder habits, perianal/buttock numbness, or known overt weakness. However, she says it is very painful for her to move her legs and feet. She does mention she was able to walk to the bathroom this evening under her own power but that it is very slow and painful. Vitals reviewed. She can wiggle her toes but really does not move her legs much else, likely limited by low back pain and less so by habitus (BMI 50). Distal sensation intact in bilateral feet. Plan: - Will decrease the interval of her Dilaudid and Zofran dosing to help with pain and nausea respectively. - Changed her MRI of lumbar spine from routine to stat such that it gets done overnight. Will notify surgery if there is evidence of acute cauda equina. Kelsy Mason, PGY3 Overnight call Results & Data Vital Signs (Past 12 Hours) Vital Signs Temp Pulse Pulse Resp BP BP BP 12/29/18 21:52 93 H 18 127/85 12/29/18 15:07 36.9 C 79 20 143/67 H 12/29/18 14:19 65 20 137/83 12/29/18 13:27 72 18 126/80 12/29/18 11:54 76 16 142/73 H 12/29/18 11:27 66 18 134/87 Pulse Ox 12/29/18 21:52 97 12/29/18 15:07 95 12/29/18 14:19 93 12/29/18 13:27 97 12/29/18 11:54 97 12/29/18 11:27 95
[2018-12-30] MEDS: HYDROmorphone INJ 0.5 MG/0.5 ML SYR IV PRN ×6 (00:41→21:50)
[2018-12-30] MEDS: DEXAMETHASONE SOD PHOSPHATE 8 MG in SYRINGE 0 ML IV SCH ×3 (01:32→18:25)
[2018-12-30] MEDS: ONDANSETRON INJ 2 MG/ML 2 ML VIAL IV PRN ×3 (01:33→09:12)
[2018-12-30] MEDS: KETOROLAC 30 MG/ML VIAL IV PRN ×3 (04:11→19:51)
[2018-12-30] MEDS: ACETAMINOPHEN 500 MG TAB PO SCH ×3 (05:41→21:49)
[2018-12-30 06:07] LABS: Hematocrit (blood only) 39.2 % (37-47); Hemoglobin 12.9 g/dL (12.0-16.0); Mean Corpuscular Hemoglobin 30.4 pg (25-34); Mean Corpuscular Hgb Conc 32.9 g/dL (32-36); Mean Corpuscular Volume 92.2 fL (80-100); Mean Platelet Volume 9.8 fL (7.4-10.4); Platelet Count 340 K/uL (130-400); RDW Coefficient of Variation 13.2 % (11.5-14.5); RDW Standard Deviation 44.3 fL (36.4-46.3); Red Blood Count 4.25 M/uL (4.2-5.4)
[2018-12-30 06:44] LABS: BUN Creatinine Ratio 18.4 (10-20); Calcium 9.1 mg/dl (8.5-10.1); Creatinine Clr Calc Pharmacy 219.8 ml/min; Est GFR (African American) 144.6; Est GFR (Non-African American) 124.7; Potassium 4.1 mmol/L (3.5-5.1)
--- NOTE | 2018-12-30 07:19 | Magnetic Resonance Report ---
MRI OF THE LUMBAR SPINE WITHOUT IV CONTRAST CLINICAL HISTORY: Low back pain. COMPARISON STUDY: MRI of the lumbar spine dated 02/20/2018. Radiographs of lumbar spine dated 12/30/[address] dated 09/23/2011. TECHNIQUE: MRI of the lumbar spine is performed utilizing various T1 and T2-weighted sequences in the axial and sagittal planes. IV contrast was not administered for this examination. FINDINGS: Lumbar spine: Vertebral body height and alignment are maintained throughout the lumbar spine. Normal marrow signal intensity is preserved throughout the visualized bony structures. The transverse and sp inous processes appear intact. There is no evidence of spondylolysis. No destructive bony lesion is s een. Intervertebral discs: There is mild degenerative disc desiccation seen from L3 to L4 through L5-S1. M ild loss of height is seen at L5-S1. Spinal cord: The visualized spinal cord is normal in morphology and signal intensity. The conus medul leti terminates at the superior endplate of L1. The nerve roots of the cauda equina are normal in mo rphology. L1-L2: Unremarkable. L2-L3: Unremarkable. L3-L4: There is a tiny annular fissure. The central canal and neural foramina are patent. Minimal fac et arthropathy is of no consequence. L4-L5: There is a posterior disc bulge eccentric to the right with annular fissure. This causes mild right-sided subarticular stenosis and likely impinges on the transiting right-sided nerve roots. Ther e is no significant acquired compromise of the central canal at this level. The minimum AP diameter m easures 9 mm. There is mild neural foraminal narrowing and mild facet arthropathy. There are bilatera l facet joint effusions. L5-S1: There is minimal posterior disc bulge with annular fissure. The central canal is patent. There is mild facet arthropathy and mild neural foraminal stenosis. Sacrum: The visualized sacrum is normal in morphology and signal intensity. Soft tissues: There is mild fatty atrophy of the paraspinous musculature. The retroperitoneal structu res are grossly unremarkable but incompletely assessed. IMPRESSION: 1. Again seen is a disc bulge eccentric to the right at L4-L5 which impinges on the transiting right- sided nerve roots. This appears somewhat improved from the 02/12/2018 examination. 2. There is no significant acquired compromise of the central canal. 3. Mild degenerative disc disease at additional levels as above. Dictated: 12/30/2018 6:41 AM Transcribed: 12/30/2018 7:10 AM Shruthi [id number] WILLIAM_Hugo Electronically signed by: Reynaldo García M.D. 12/30/2018 7:17 AM
[2018-12-30] MEDS: LIDOCAINE 5% 1 PATCH TD SCH (08:59)
[2018-12-30] MEDS ORDERED: predniSONE 50 MG TAB PO SCH (09:00)
--- NOTE | 2018-12-30 09:04 | Consultation ---
Date of Consultation December 30, 2018 Assessment & Plan (1) Lumbar disc disease with radiculopathy: I had a long discussion with the patient and reviewed her MRI. We have discussed conservative treatment path. This includes acutely pain management from a medication standpoint.. If pain is uncontrolled within the next 24 hours may consider pain management evaluation for both medication recommendations as well as possible steroid injection. This can be done in outpatient setting of arabella tovar. Would not proceed aggressively with surgical intervention. This should calm down within the next few weeks. Her lumbar MRI, on a side note, does show muscle atrophy of the thoracolumbar region. Once her pain is under control I have discussed with her continued weight loss program and strengthening/conditioning program. Supervising Physician Co-Signing Physician Notes Dr. Boris Merchant History of Present Illness This is a pleasant 28-year-old female that we are asked to see in consultation regarding her lumbar spine. She had a similar episode roughly 1 year ago in January 2018 that was managed by 's after. She was initially started on low- dose Neurontin and muscle relaxants at that point in time. Pain resolved rather quickly. She is been doing quite well and pursuing a weight loss program. About 24 hours ago she woke up after feeling a pop in her lower back and had severe back and right lower extremity pain. She states currently her pain is much more severe than what it was a year ago. It radiates down the right lumbar spine, right buttock, posterior thigh, lateral calf to the lateral aspect of her right foot. Left leg is asymptomatic. All positions are very uncomfortable for her. Denies bowel bladder changes. Attending Physician: Darshan Lowe Allergies Allergy/AdvReac Type Severity Reaction Status Date / Time latex Allergy Severe Hives Verified 12/29/18 10:29 Sulfa (Sulfonamide Allergy Severe swelling Verified 12/29/18 10:29 Antibiotics) of throat amoxicillin Allergy Mild UNKNOWN Verified 12/29/18 10:29 clavulanic acid Allergy Mild UNKNOWN Verified 12/29/18 10:29 Home Medications Home Medications Medication Instructions Recorded Confirmed Type multivitamin 1 tab PO QAM 01/18/18 12/29/18 History Patient History Medical History Abdominal cramping (Acute 09/15/13) Insect bite (Acute) Left lumbar radiculopathy (Acute) Lumbar back pain with radiculopathy affecting right lower extremity (Acute) Morbid obesity with BMI of 45.0-49.9, adult labor (Acute 10/01/13) Right lumbar radiculitis (Acute) Encounter for smoking cessation counseling (Inactive) Hip pain (Inactive) Leg pain (Inactive) Surgical History History of delivery Family History Other No significant family history Social History Preferred Language: Macanese Communication Ability: Effective Beliefs That Will Affect Care: None marital status: Single Current Living Situation: Family Current Living Situation Comment: "4 kids, Boyfriend, and I" current occupational status: unemployed Other Information That Helps Us Care for You: No Feels Safe at Home: Yes Safety Concerns: Feels Safe At This Time Smoking Status: Former smoker Tobacco Type: cigarettes ; Age Started Using Tobacco: 18 ; Age Quit Using Tobacco: 28 ; packs per day: 1 ; Years Smoked: 10 ; Hx Alcohol Use: No Hx Substance Use: No Review of Systems Review of Systems: All systems reviewed & are unremarkable except as noted in HPI & below Physical Exam Physical Exam: She is seen in bed 353 bed 2. She is cooperative the exam. She is lying supine. Does appear moderately uncomfortable. She has 5/5 bilateral EHL, dorsiflexion, plantar flexion, quadriceps, hamstrings. Negative logrolling bilaterally. Positive tension sign on the right. Negative contralateral straight leg raise. Constitutional: well developed Eyes: normal visual cummings by confrontation ENMT: external ear and nose normal, oropharynx normal Neck: normal visual inspection Respiratory: normal respiratory effort Cardiovascular: Vessels: dorsalis pedis pulses present Extremities: normal capillary refill Gastrointestinal (Abdomen): Inspection/Auscultation: abdomen normal to inspection Musculoskeletal: no cyanosis or clubbing, extremities motor strength 5/5 Skin: no rashes, warm and dry Neurologic: patellar DTR's 2+ bilat, sensation intact moves all extremities Psychiatric: A+Ox3, euthymic affect Results & Data Vital Signs (Past 12 Hours) Vital Signs Temp Pulse Resp BP Pulse Ox 12/30/18 07:33 36.6 C 71 18 92/59 L 95 12/29/18 22:53 36.9 C 79 16 112/73 93 12/29/18 21:52 93 H 18 127/85 97 Diagnostic Findings [phone] Magnetic Resonance Report Patient: STACEY WALTERS Date: 12/29/18 MR#: [id number] [facility] Acct ID:[id number]: [address] [facility]: 1990[facility] Zip[facility] [place] [address] Age: 28Location: 3W Sex: F Room/Bed: [facility] Att Phy: Dasrhan Lowe M.D.Diagnosis: BACK PAIN Anni Phy: Samy Sky III, MDService Date: 12/30/18 Fam Phy:Interpreting Phy: Reynaldo García MD Admit Phy: Darshan Lowe M.D. Ordering Phy: Juan Pablo Mason MD cc: ~ MRI OF THE LUMBAR SPINE WITHOUT IV CONTRAST CLINICAL HISTORY: Low back pain. COMPARISON STUDY: MRI of the lumbar spine dated 02/20/2018. Radiographs of lumbar spine dated 12/29/2018. Abdominal CT dated 09/23/2011. TECHNIQUE: MRI of the lumbar spine is performed utilizing various T1 and T2- weighted sequences in the axial and sagittal planes. IV contrast was not administered for this examination. FINDINGS: Lumbar spine: Vertebral body height and alignment are maintained throughout the lumbar spine. Normal marrow signal intensity is preserved throughout the visualized bony structures. The transverse and spinous processes appear intact. There is no evidence of spondylolysis. No destructive bony lesion is seen. Intervertebral discs: There is mild degenerative disc desiccation seen from L3 to L4 through L5-S1. Mild loss of height is seen at L5-S1. Spinal cord: The visualized spinal cord is normal in morphology and signal intensity. The conus medullaris terminates at the superior endplate of L1. The nerve roots of the cauda equina are normal in morphology. L1-L2: Unremarkable. L2-L3: Unremarkable. L3-L4: There is a tiny annular fissure. The central canal and neural foramina are patent. Minimal facet arthropathy is of no consequence. L4-L5: There is a posterior disc bulge eccentric to the right with annular fissure. This causes mild right-sided subarticular stenosis and likely impinges on the transiting right-sided nerve roots. There is no significant acquired compromise of the central canal at this level. The minimum AP diameter measures 9 mm. There is mild neural foraminal narrowing and mild facet arthropathy. There are bilateral facet joint effusions. L5-S1: There is minimal posterior disc bulge with annular fissure. The central canal is patent. There is mild facet arthropathy and mild neural foraminal stenosis. Sacrum: The visualized sacrum is normal in morphology and signal intensity. Soft tissues: There is mild fatty atrophy of the paraspinous musculature. The retroperitoneal structures are grossly unremarkable but incompletely assessed. IMPRESSION: 1. Again seen is a disc bulge eccentric to the right at L4-L5 which impinges on the transiting right-sided nerve roots. This appears somewhat improved from the 02/12/2018 examination. 2. There is no significant acquired compromise of the central canal. 3. Mild degenerative disc disease at additional levels as above. Dictated: 12/30/2018 6:41 AM Transcribed: 12/30/2018 7:10 AM Shruthi [id number] WILLIAM_Hugo Electronically signed by: Reynaldo García M.D. 12/30/2018 7:17 AM Dictated: 12/30/18 0641 Transcribed: 12/30/18 0710
[2018-12-30] MEDS: GABAPENTIN 100 MG CAP PO SCH (09:12)
[2018-12-30] MEDS: LORazepam 0.5 MG TAB PO PRN (11:04)
--- NOTE | 2018-12-30 12:46 | Hospitalist Progress Note ---
Date of Service December 30, 2018 Assessment & Plan (1) Intractable low back pain: - Presented with low back pain -- possibly related to lumbar strain vs. herniated disc with radiculopathy. - XR of L-spine and right hip negative; MRI of lumbar spine showed disc bulge at L4-L5 impinging on right sided nerve roots -- appears improved compared to Feb 2018. - ESR and CRP both mildly elevated. - Ortho spine consulted, appreciate input. - Tylenol 1 gm PO q8hr scheduled; Toradol prn mod pain and Dilaudid 0.5 mg IV q6hr prn severe pain - pt. has been using both meds frequently. - K-pad for heat application; Lidocaine patch for topical pain relief. - Started Gabapentin 100 mg BID for radiculopathy -- will increase to 300 mg BID (has been on med in past) - Continue Decadron 8 mg IV q8hr - will need steroid taper at discharge. - Will need pain management consult on 12/31 if no improvement in lumbar pain -- consider injection. (2) Lumbar disc disease with radiculopathy: - As noted above. (3) Obesity: - Encourage weight loss and exercise. - Pt. reports she has been exercising daily since October. (4) DVT prophylaxis: - SCDs; Lovenox daily. Dispo: Discharge on 12/31 pending improvement back pain. Has been using IV pain meds frequently. PT evaluation pending. Subjective Pt. reports back pain/right hip pain is still present, has been using both Toradol and Dilaudid IV frequently. Right leg radiculopathy is improved after starting Gabapentin 100 mg BID. Ortho spine consulted, appreciate input. May require pain management consult if pt. continues to have uncontrolled pain in the morning. Encouraged ambulation throughout the day -- she has had difficulty walking due to pain. Review of Systems Review of Systems: All systems reviewed & are unremarkable except as noted in HPI & below Constitutional: + weakness; no fever, no chills and no fatigue Respiratory: no cough, no dyspnea, no dyspnea on exertion and no wheezing Cardiovascular: no chest pain, no palpitations and no edema Gastrointestinal: no abdominal pain, no nausea and no constipation Genitourinary: no difficulty urinating Musculoskeletal: + back pain, + radicular pain and + body aches; no joint pain Integumentary: no non-healing lesions Physical Exam Physical Exam: General: Obese female, in no acute distress. HEENT: NC/AT; PERRLA with EOMI; [place] conjunctiva, MMM. No erythema of posterior pharynx Neck: Supple and nontender Cardiac: RRR Lungs: CTA bilaterally Abdomen: Bowel normoactive X 4; Nontender to palpation Back: Tender to palpation over right lower back. Extremities: Warm. No edema present. Neuro: +3/5 muscle strength on LLE, +1/5 muscle strength on RLE. No other deficits noted. Skin: No rash Results & Data Vital Signs (Past 12 Hours) Vital Signs Temp Pulse Resp BP Pulse Ox 12/30/18 11:18 99 12/30/18 07:33 36.6 C 71 18 92/59 L 95 Laboratory Results 12/30/18 12/30/18 12/29/18 Range/Units 05:54 05:54 18:40 WBC 15.40 H (4.8-10.8) K/uL RBC 4.25 (4.2-5.4) M/uL Hgb 12.9 (12.0-16.0) g/dL Hct 39.2 (37-47) % MCV 92.2 (80-100) fL MCH 30.4 (25-34) pg MCHC 32.9 (32-36) g/dL RDW Std Deviation 44.3 (36.4-46.3) fL RDW Coeff of Gracia 13.2 (11.5-14.5) % Plt Count 340 (130-400) K/uL MPV 9.8 (7.4-10.4) fL ESR (0-21) mm/hr Sodium 140 (136-145) mmol/L Potassium 4.1 D (3.5-5.1) mmol/L Chloride 108 H (98-107) mmol/L Carbon Dioxide 26 (21-32) mmol/L Anion Gap 6.0 (3-11) BUN 11 (7-18) mg/dl Creatinine 0.59 L (0.6-1.2) mg/dl Est Cr Clr Drug Dosing 219.8 ml/min Est GFR ( Amer) 144.6 Est GFR (Non-Af Amer) 124.7 BUN/Creatinine Ratio 18.4 (10-20) Glucose 155 H (70-99) mg/dl Calcium 9.1 (8.5-10.1) mg/dl C-Reactive Protein (0-0.29) mg/dl Urine Color Yellow Urine Appearance Cloudy A (Clear) Urine pH 5.0 (4.5-7.5) Ur Specific Jeffers 1.021 (1.000-1.030) Urine Protein Negative (Negative) Urine Glucose (UA) Negative (Negative) Urine Ketones 2+ H (Negative) Urine Blood Negative (Negative) Urine Nitrite Negative (Negative) Urine Bilirubin Negative (Negative) Urine Urobilinogen Negative (Negative) Ur Leukocyte Esterase Negative (Negative) Urine WBC (Auto) 1-5 (0-5) /hpf Urine RBC (Auto) 0-4 (0-4) /hpf U Hyaline Cast (Auto) 10-30 H (0-5) /lpf U Epithel Cells (Auto) >30 H (0-5) /lpf Urine Bacteria (Auto) Negative (Negative) 12/29/18 12/29/18 Range/Units 09:51 09:51 WBC (4.8-10.8) K/uL RBC (4.2-5.4) M/uL Hgb (12.0-16.0) g/dL Hct (37-47) % MCV (80-100) fL MCH (25-34) pg MCHC (32-36) g/dL RDW Std Deviation (36.4-46.3) fL RDW Coeff of Gracia (11.5-14.5) % Plt Count (130-400) K/uL MPV (7.4-10.4) fL ESR 29 H (0-21) mm/hr Sodium (136-145) mmol/L Potassium (3.5-5.1) mmol/L Chloride (98-107) mmol/L Carbon Dioxide (21-32) mmol/L Anion Gap (3-11) BUN (7-18) mg/dl Creatinine (0.6-1.2) mg/dl Est Cr Clr Drug Dosing ml/min Est GFR ( Amer) Est GFR (Non-Af Amer) BUN/Creatinine Ratio (10-20) Glucose (70-99) mg/dl Calcium (8.5-10.1) mg/dl C-Reactive Protein 0.68 H (0-0.29) mg/dl Urine Color Urine Appearance (Clear) Urine pH (4.5-7.5) Ur Specific Jeffers (1.000-1.030) Urine Protein (Negative) Urine Glucose (UA) (Negative) Urine Ketones (Negative) Urine Blood (Negative) Urine Nitrite (Negative) Urine Bilirubin (Negative) Urine Urobilinogen (Negative) Ur Leukocyte Esterase (Negative) Urine WBC (Auto) (0-5) /hpf Urine RBC (Auto) (0-4) /hpf U Hyaline Cast (Auto) (0-5) /lpf U Epithel Cells (Auto) (0-5) /lpf Urine Bacteria (Auto) (Negative) PG Care Time/CCT Total # of Minutes Spent Total Time Spent with Patient: Total time spent is greater than 50% in coordination of care (as documented) at patient's floor/unit and/or counseling patient:
[2018-12-30] MEDS: PROMETHAZINE HCL 12.5 MG in SODIUM CHLORIDE 0.9% 50 ML IV PRN (17:44)
[2018-12-30] MEDS ORDERED: DEXAMETHASONE SOD PHOSPHATE 8 MG in SYRINGE 0 ML IV SCH (21:00)
[2018-12-30] MEDS: GABAPENTIN 300 MG CAP PO SCH (21:45)
[2018-12-30] MEDS: ENOXAPARIN INJ 30 MG/0.3 ML SYR SQ SCH (21:46)
[2018-12-31] MEDS: HYDROmorphone INJ 0.5 MG/0.5 ML SYR IV PRN ×5 (01:31→21:10)
[2018-12-31] MEDS: PROMETHAZINE HCL 12.5 MG in SODIUM CHLORIDE 0.9% 50 ML IV PRN (05:54)
[2018-12-31] MEDS: DEXAMETHASONE SOD PHOSPHATE 8 MG in SYRINGE 0 ML IV SCH (05:55)
[2018-12-31] MEDS: ACETAMINOPHEN 500 MG TAB PO SCH ×3 (06:18→21:08)
[2018-12-31] MEDS: KETOROLAC 30 MG/ML VIAL IV PRN ×2 (08:42→19:57)
[2018-12-31] MEDS: GABAPENTIN 300 MG CAP PO SCH ×2 (09:19→20:01)
[2018-12-31] MEDS: LIDOCAINE 5% 1 PATCH TD SCH (09:20)
[2018-12-31] MEDS: LORazepam 0.5 MG TAB PO PRN (10:11)
--- NOTE | 2018-12-31 15:01 | Hospitalist Progress Note ---
Date of Service December 31, 2018 Assessment & Plan (1) Intractable low back pain: MRI lumbar spine on 12/30 showed disc bulge at L4-L5 impinging on right sided nerve roots -- appears improved compared to Feb 2018. - Ortho spine consulted - No place for surgery. - Pain management consulted on 12/31 - Awaiting consult - Tylenol 1 gm PO q8hr scheduled; Toradol prn mod pain and Dilaudid 0.5 mg IV q6hr prn severe pain - pt. has been using both meds frequently. - K-pad for heat application; Lidocaine patch for topical pain relief. - Started Gabapentin 100 mg BID for radiculopathy -- will increase to 300 mg BID (has been on med in past) - Taper Decadron (2) Lumbar disc disease with radiculopathy: - As noted above. (3) Obesity: - Encourage weight loss and exercise. - Pt. reports she has been exercising daily since October. (4) DVT prophylaxis: - SCDs; Lovenox daily. Subjective Feels minimally better compared to 2 prior days. Still with back pain and spasms. Denies shortness of breath, chest pain, other systemic symptoms. Review of Systems Review of Systems: All systems reviewed & are unremarkable except as noted in HPI & below Physical Exam Constitutional: WD/WN, vitals as above + obese Eyes: EOM intact bilaterally; no conjunctival abnormality ENMT: external ear and nose normal, oropharynx normal Neck: trachea midline, no thyromegaly normal visual inspection Respiratory: normal respiratory effort, lungs clear to auscultation no respiratory distress Cardiovascular: RRR, no murmur, no edema Gastrointestinal (Abdomen): Inspection/Auscultation: abdomen normal to inspection; abdomen not distended Musculoskeletal: no cyanosis or clubbing, extremities motor strength 5/5 Skin: no rashes, warm and dry Neurologic: moves all extremities and awake Psychiatric: Orientation: alert, oriented to person and cooperative Results & Data Vital Signs (Past 12 Hours) Vital Signs Temp Pulse Resp BP Pulse Ox 12/31/18 07:51 36.6 C 73 18 94/60 L 95 PG Care Time/CCT Total # of Minutes Spent Total Time Spent with Patient: Total time spent is greater than 50% in coordination of care (as documented) at patient's floor/unit and/or counseling patient:
[2018-12-31] MEDS ORDERED: ENOXAPARIN INJ 40 MG/0.4 ML SYR SQ SCH (21:00)
[2019-01-01] MEDS: HYDROmorphone INJ 0.5 MG/0.5 ML SYR IV PRN (05:47)
[2019-01-01] MEDS: ACETAMINOPHEN 500 MG TAB PO SCH (06:32)
[2019-01-01] MEDS ORDERED: BACLOFEN 10 MG TAB PO SCH (09:00)
[2019-01-01] MEDS ORDERED: dexAMETHasone 4 MG TAB PO SCH (09:00)
[2019-01-01] MEDS: GABAPENTIN 300 MG CAP PO SCH (09:25)
[2019-01-01] MEDS: LIDOCAINE 5% 1 PATCH TD SCH (09:25)
[2019-01-01] MEDS ORDERED: HYDROCODONE/ACETAMOPHEN 5/325MG TAB PO PRN (09:27)
[2019-01-01] MEDS ORDERED: methylPREDNISolone 4 MG TAB, 6 DAY TAPER PO SCH (09:30)
[2019-01-01] MEDS ORDERED: GABAPENTIN 300 MG CAP PO SCH ×2 (09:45→14:00)
[2019-01-01] MEDS ORDERED: methylPREDNISolone 4 MG TAB PO SCH ×2 (10:00→13:00)
--- NOTE | 2019-01-01 10:53 | Pain Management Consultation ---
Date of Consultation January 01, 2019 Assessment & Plan (1) Lumbar back pain with radiculopathy affecting right lower extremity: 1. Recommend initiation of Medrol Dosepak, baclofen 10 mg p.o. 3 times daily, gabapentin 600 mg p.o. 3 times daily, hydrocodone acetaminophen 5/3 25 mg 1 p.o. every 6 as needed. Patient was counseled on the risk benefits and side effects of the medications. Orders are placed. 2. Recommend consideration of right L4-5 transfemoral epidural steroid injection as an outpatient. The patient was provided my office contact information should she wish to pursue this. 3. Recommend physical therapy as an outpatient and continuation of yoga type stretching exercises. 4. Recommend weight loss to further decrease pain. Patient I did discuss this on today's examination 5. We will plan to see her as an outpatient should she wish to consider epidural steroid injections otherwise please call with any questions. (2) Morbid obesity with BMI of 45.0-49.9, adult: History of Present Illness Attending Physician: Jadiel Burns MD History of Present Illness 28-year-old female who presented to the [facility] emergency room on 12/29/2018 with 70% right greater than left axial low back pain from L4 to lumbosacral junction to 30% right L4 and L5 radicular symptoms. She denies any injury as to the etiology of this pain. She reports one prior occurrence of pain in 2018 which resolved with time, muscle relaxants, gabapentin, and yoga. She reports pain is similar to previous episode. She states that she has been working on weight loss over the last year and a half as well as performing yoga which has been of some benefit in minimizing her typical chronic axial low back pain. She she awoke with pain on 12/29 and sought care in the emergency room. She denies any bowel or bladder incontinence, motor weakness, footdrop, fever, chills, and or night sweats. She states pain currently is between 7 and 8 out of 10 sharp shooting and cramping. She does find mild benefit with gabapentin dosing at 300 mill grams p.o. twice daily. She states she is fairly active at home as she has three 8-year-old sons and one 5-year-old daughter for which she is the primary caregiver. Pain Assessment Full Body Front + Back: 1. 2. 3. Allergies Allergy/AdvReac Type Severity Reaction Status Date / Time latex Allergy Severe Hives Verified 12/29/18 10:29 Sulfa (Sulfonamide Allergy Severe swelling Verified 12/29/18 10:29 Antibiotics) of throat amoxicillin Allergy Mild UNKNOWN Verified 12/29/18 10:29 clavulanic acid Allergy Mild UNKNOWN Verified 12/29/18 10:29 Home Medications Home Medications Medication Instructions Recorded Confirmed Type multivitamin 1 tab PO QAM 01/18/18 12/29/18 History baclofen 10 mg PO TID #20 tab 01/01/19 Rx gabapentin 600 mg PO BID #60 tab 01/01/19 Rx hydrocodone-acetaminophen [[place]] 1 tab PO Q6H PRN #20 tab 01/01/19 Rx lidocaine 1 patch TRANSDERMAL QAM #15 ea 01/01/19 Rx methylprednisolone 4 mg PO QID #10 tab 01/01/19 Rx Patient History Medical History Abdominal cramping (Acute 09/15/13) Insect bite (Acute) Left lumbar radiculopathy (Acute) Lumbar back pain with radiculopathy affecting right lower extremity (Acute) Morbid obesity with BMI of 45.0-49.9, adult (Chronic) labor (Acute 10/01/13) Right lumbar radiculitis (Acute) Encounter for smoking cessation counseling (Inactive) Hip pain (Inactive) Leg pain (Inactive) Surgical History History of delivery Family History Other No significant family history Social History Preferred Language: Lao Communication Ability: Effective Beliefs That Will Affect Care: None marital status: Single Current Living Situation: Family Current Living Situation Comment: "4 kids, Boyfriend, and I" current occupational status: unemployed Other Information That Helps Us Care for You: No Feels Safe at Home: Yes Safety Concerns: Feels Safe At This Time Smoking Status: Former smoker Tobacco Type: cigarettes ; Age Started Using Tobacco: 18 ; Age Quit Using Tobacco: 28 ; packs per day: 1 ; Years Smoked: 10 ; Hx Alcohol Use: No Hx Substance Use: No Physical Exam Physical Exam: Constitutional: Well-developed, well-nourished, healthy- appearing, morbidly obese Psych: Awake, alert, and oriented 3 with normal affect and mood. Recent memory appears grossly intact Eyes: Pupils are equally round and reactive to light with normal size pupils, eyelids appear normal Ear, nose, mouth, and throat: Moist nasal and oral membranes, lips and tongues appear normal, no external ear abnormalities are noted Neck: The trachea is midline without deviation and no thyromegaly is noted Respiratory: Normal respiratory effort without distress, no audible wheezes or rhonchi CV: Normal S1 and S2 Chest: Deferred GI/abdomen: Protuberant nontender Musculoskeletal: Head is normocephalic and atraumatic, gait not observed. The patient is able to logroll in bed. Cervical: Lordotic curve: Normal Range of motion is normal with extension, flexion, side-bending, rotation Strength: Strength is grossly equal bilaterally with 5 out of 5 strength in all planes Sensation of upper extremities: Intact bilaterally Thoracic: Kyphotic curve: Normal Range of motion is normal with extension, flexion, side-bending, rotation Tenderness: Nontender over the axial midline Step-off injuries: None Myofascial spasm: No appreciable spasm. No discrete trigger points noted Lumbar: Lordotic curve: Increased lumbar lordosis Range of motion is decreased in all planes secondary to pain and body habitus Tenderness: Exquisitely tender over the axial midline from L4 to this lumbosacral junction right greater than left Facet provocation: Positive bilaterally Straight leg raise: Positive on the right negative on the left worsened with Achilles stretch Step-off injuries: None Strength: Strength is equal bilaterally with 5 out of 5 strength in all planes Sensation of lower extremities: Intact bilaterally Deep tendon reflexes: Rated at 2+ in bilateral L4 and S1 Myofascial spasm: Moderate spasm over lumbar paravertebral spinous musculature and quadratus lumborum right greater than left. No discrete trigger points noted Greater trochanters: Mildly tender bilaterally Sacroiliac joints: Mildly tender bilaterally Pathologic reflexes noted: None Skin: No rashes, lesions, ulcers, or induration noted Neuro: No nystagmus noted, the tongue is midline, the patient is able to rotate their head bilaterally : Deferred Results Diagnostic Review MRI: non enhanced, reports reviewed and findings discussed with patient MRI Findings: [place], [place] [phone] Magnetic Resonance Report Patient: STACEY WALTERSmit Date: 12/29/18 MR#: [id number]: [address] Acct ID:[id number]: VIRIGNIA CLAYTON [address] Date: 1990[facility] Zip: [place] [address] Age: 28Location: 3W Sex: F Room/Bed: [facility] Att Phy: Darshan Lowe M.D.Diagnosis: BACK PAIN Anni Phy: Samy Sky III, MDService Date: 12/30/18 Fam Phy:Interpreting Phy: Reynaldo García MD Admit Phy: Darshan Lowe M.D. Ordering Phy: Juan Pablo Mason MD cc: ~ MRI OF THE LUMBAR SPINE WITHOUT IV CONTRAST CLINICAL HISTORY: Low back pain. COMPARISON STUDY: MRI of the lumbar spine dated 02/20/2018. Radiographs of lumbar spine dated 12/29/2018. Abdominal CT dated 09/23/2011. TECHNIQUE: MRI of the lumbar spine is performed utilizing various T1 and T2- weighted sequences in the axial and sagittal planes. IV contrast was not adm inistered for this examination. FINDINGS: Lumbar spine: Vertebral body height and alignment are maintained throughout the lumbar spine. Normal marrow signal intensity is preserved throughout the vis ualized bony structures. The transverse and spinous processes appear intact. There is no evidence of spondylolysis. No destructive bony lesion is seen. Intervertebral discs: There is mild degenerative disc desiccation seen from L3 to L4 through L5-S1. Mild loss of height is seen at L5-S1. Spinal cord: The visualized spinal cord is normal in morphology and signal intensity. The conus medullaris terminates at the superior endplate of L1. The nerve roots of the cauda equina are normal in morphology. L1-L2: Unremarkable. L2-L3: Unremarkable. L3-L4: There is a tiny annular fissure. The central canal and neural foramina are patent. Minimal facet arthropathy is of no consequence. L4-L5: There is a posterior disc bulge eccentric to the right with annular fissure. This causes mild right-sided subarticular stenosis and likely impinges on the transiting right-sided nerve roots. There is no significant acquired compromise of the central canal at this level. The minimum AP diameter measures 9 mm. There is mild neural foraminal narrowing and mild facet arthropathy. There are bilateral facet joint effusions. L5-S1: There is minimal posterior disc bulge with annular fissure. The central canal is patent. There is mild facet arthropathy and mild neural foraminal stenosis. Sacrum: The visualized sacrum is normal in morphology and signal intensity. Soft tissues: There is mild fatty atrophy of the paraspinous musculature. The retroperitoneal structures are grossly unremarkable but incompletely assessed. IMPRESSION: 1. Again seen is a disc bulge eccentric to the right at L4-L5 which impinges on the transiting right-sided nerve roots. This appears somewhat improved from the 02/12/2018 examination. 2. There is no significant acquired compromise of the central canal. 3. Mild degenerative disc disease at additional levels as above. Radiology: reports reviewed and findings discussed with patient Radiology Findings: 12/29/18 LUMBAR SPINE 3 VIEWS Right hip x-ray HISTORY: Back pain COMPARISON: Lumbar spine 03/13/2018. FINDINGS: There is no fracture. No subluxation. Mild disc space at L4-L5 and L5-S1. The sacrum appears intact. Multiple gallstones are again noted. IMPRESSION: 1. No fracture or subluxation within the lumbar spine. 2. Mild degenerative disc disease at L4-L5 and L5-S1. 3. Cholelithiasis. 4. No acute abnormality in the right hip
--- NOTE | 2019-01-01 17:12 | Discharge Summary ---
Date of Service January 01, 2019 Admission HPI Per Admitting Provider Ms. Aragon is a 28 year old female with past medical history of and tubal ligation who presented to the ER with intractable back pain. She was initially diagnosed with back pain & right leg radiculopathy in January 2018. Patient had multiple ER visits last fall and completed a steroid taper along with a short course of Gabapentin. MRI of L-spine on 02/12/18 showed disc extrusion at L4-5 with slight caudal migration with severe effacement of right lateral recess and mass effect on right L5 and S1 nerve roots. She was also evaluated by Dr. Guo during previous visits. Pt. reports back pain had impr elvia overall. She has been exercising daily -- currently doing the 21 day fix work out and usually works out every day of the week. She did yoga yesterday and did not have any back pain or radiculopathy symptoms. Pt. woke up this morning at 2:30 am with severe low back and right hip pain. Pain is constant and radiates down her right leg to the right 5th toe. She has trouble ambulating due to right leg pain. Pain is described as a sharp, shooting pain in her right leg and constant dull pressure in her right hip. Denies chest pain, SOB, constipation (last BM was this morning), urinary retention or incontinence, saddle anesthesia, dysuria or hematuria, LE edema. ER course: Pt. received Dilaudid 0.5 mg IV, Toradol 10 mg IV, Dexamethasone 10 mg IV, Ativan 0.5 mg IV, Zofran 4 mg IV with no improvement. Will be admitted for further evaluation of lumbar spinal pain & radiculopathy. Principal Diagnosis Back pain Discharge Exam Constitutional WD/WN, vitals as above + obese Eyes EOM intact bilaterally; no conjunctival abnormality ENMT external ear and nose normal, oropharynx normal Neck trachea midline, no thyromegaly normal visual inspection Respiratory normal respiratory effort, lungs clear to auscultation no respiratory distress Cardiovascular RRR, no murmur, no edema Gastrointestinal (Abdomen) Inspection/Auscultation: abdomen normal to inspection; abdomen not distended Musculoskeletal no cyanosis or clubbing, extremities motor strength 5/5 Skin no rashes, warm and dry Neurologic moves all extremities and awake Psychiatric Orientation: alert, oriented to person and cooperative Discharge Data Allergies Allergy/AdvReac Type Severity Reaction Status Date / Time latex Allergy Severe Hives Verified 12/29/18 10:29 Sulfa (Sulfonamide Allergy Severe swelling Verified 12/29/18 10:29 Antibiotics) of throat amoxicillin Allergy Mild UNKNOWN Verified 12/29/18 10:29 clavulanic acid Allergy Mild UNKNOWN Verified 12/29/18 10:29 Consultations 12/29/18 12:40 ED Decision to Admit Stat 12/29/18 13:22 Consult Orthopedic Surgery Routine 12/31/18 11:20 Consult Pain Management Routine Ordered Studies 12/30/18 23:04 MR lumbar spine wo con Stat Hospital Course (1) Intractable low back pain: MRI lumbar spine on 12/30 showed disc bulge at L4-L5 impinging on right sided nerve roots -- appears improved compared to Feb 2018. - Ortho spine consulted - No place for surgery. - Pain management consulted - To be discharged on oral pain meds, muscle relaxer, lidocaine patch, and steroids. Follow up in [address] Smith. (2) Lumbar disc disease with radiculopathy: - As noted above. (3) Obesity: - Encourage weight loss and exercise. - Pt. reports she has been exercising daily since October. (4) DVT prophylaxis: - SCDs; Lovenox daily. Total Time Total Time Spent Total Time Spent (In Minutes): 24 Discharge Plan Discharge Items Patient Disposition: Home - Self-Care Reason For Visit: BACK PAIN Discharge Diagnosis: Back pain Activity: Resume your previous activity Non-emergency contact: Primary Care Provider Call non-emergency contact if: your symptoms worsen and your pain is not controlled Follow-up/Referrals: Samy Sky III, MD [Primary Care Provider] - Gia Smith DO [Physician] - Diet: Regular Addtl Attending Provider Instructions: Please take the medications that Dr. Smith recommended. Follow up with her in 2 weeks for your back pain. Please do not take OTC Tylenol (acetaminophen) along with the Tylenol #3 (hydr ocodone-acetaminophen). This can cause you to take too much Tylenol which can harm your liver. If you need the Tylenol #3, you can also take [id number] ibuprofen within the recommended dosages. Take the steroid taper this way: 1 pill 4 times per day today (first dose was in the hospital), then 3 times per day tomorrow, then 2 times per day, then the last pill on Monday. Pending Studies at Discharge: No Stand-Alone Forms: My [facility] Medications and DC Order Prescriptions: New baclofen 10 mg Tablet 10 mg PO TID Qty: 20 RF: 0 hydrocodone-acetaminophen [[place]] 5-325 mg Tablet 1 tab PO Q6H PRN (Reason: pain) Qty: 20 RF: 0 acetaminophen [Tylenol Extra Strength] 500 mg Tablet 1,000 mg PO Q8H PRN (Reason: Pain) Qty: 1 RF: 0 methylprednisolone 4 mg Tablet 4 mg PO QID Qty: 10 RF: 0 lidocaine 5 % Adhesive Patch,Medicated 1 patch transdermal QAM Qty: 15 RF: 0 gabapentin 600 mg tablet 600 mg PO BID Qty: 60 RF: 0 Continued multivitamin Tablet 1 tab PO QAM RF: 0 Discharge Orders: Discharge Order (Routine); Ordered 01/01/19 Ordered By: Jadiel Callaway/Other Patient Handouts: Methylprednisolone Oral tablet Admission Data Admit Date/Time: 12/29/18 13:21 Attending Provider: Jadiel Burns Admit Provider: Darshan Lowe Primary Care Provider: Samy Sky III Other Providers: Boris Merchant ; Jadiel Burns ; Tanner Herrera Other Interventions: Discharge Summary Assessment (RN) Last Done: 01/01/19 11:15 DC Date/Time DO NOT enter until pt leaves facility: 01/01/19 12:19
[2019-01-02] MEDS ORDERED: methylPREDNISolone 4 MG TAB PO SCH ×2 (07:00→21:00)
[2019-01-03] MEDS ORDERED: methylPREDNISolone 4 MG TAB PO SCH (07:00)
[2019-01-04] MEDS ORDERED: methylPREDNISolone 4 MG TAB PO SCH (07:00)
[2019-01-05] MEDS ORDERED: methylPREDNISolone 4 MG TAB PO SCH (07:00)
[2019-01-06] MEDS ORDERED: methylPREDNISolone 4 MG TAB PO SCH (07:00)
== END 2019-01-01 12:19 | disposition home or self-care (01) ==
LOC: ED 08:23 → 3W 08:23 → SUATTDRO 13:21 → 3W 14:19
DX: K80.20 Calculus of gallbladder without cholecystitis without obstruction; Z91.040 Latex allergy status; Z87.891 Personal history of nicotine dependence; Z68.43 Body mass index [BMI] 50.0-59.9, adult; M51.16 Intervertebral disc disorders with radiculopathy, lumbar region; Z88.1 Allergy status to other antibiotic agents; E66.01 Morbid (severe) obesity due to excess calories; Z88.2 Allergy status to sulfonamides

== ENCOUNTER 2020-08-14 19:34 | Observation (INO) ==
[2020-08-14] MEDS ORDERED: ACETAMINOPHEN 1,000 MG/100 ML VIAL IV STA (20:24)
[2020-08-14] MEDS ORDERED: SODIUM CHLORIDE 0.9% 1000ML 1,000 ML IV ONE (20:24)
[2020-08-14] MEDS ORDERED: PROCHLORPERAZINE 1 ML IV ONE (20:24)
--- NOTE | 2020-08-14 20:30 | Emergency Department Note ---
History of Present Illness General Chief complaint: Vomiting Stated complaint: SHARP STOMACH PAIN, VOMITING Time Seen by Provider: 08/14/20 19:46 Source: patient Mode of arrival: ambulatory Limitations: no limitations History of Present Illness Provider complaint: Abdominal pain, nausea Onset (ago): day(s) 2 Location: abdomen Radiation: back Severity: severe Pain Consistency: + constant Maximum Pain Intensity: 10 Current Pain Intensity: 10 Quality: + sharp Relieved By: + none Exacerbated By: + movement Associated symptoms: + nausea/vomiting; no fever/chills Treatments prior to arrival: none This is a 29-year-old female presents emergency department complaining of upper abdominal pain and nausea. Patient was seen and evaluated here yesterday with similar symptoms. Patient underwent labs, ultrasound, CT imaging, and treatment of her symptoms and was ultimately discharged home. Patient states symptoms have began 2 nights ago in the middle the night, they woke her up out of sleep at around 330. Patient states she did try the nausea medication she was given at home however this did not work. She feels the nausea she has is mostly tied to the pain. She states the pain is in her upper central abdomen and radiates straight through to her back. She denies fevers or chills, chest pain, trouble breathing. No change in bowel or bladder function. No prior history of GERD or PUD. No history of IBS or IBD. She states on her ultrasound she was found to have gallstones, and she was instructed to follow-up with her family doctor and possibly with GI. Pt seen during a time of high acuity and national emergency pandemic while wearing PPE. Home Medications Medication Instructions Recorded Confirmed Type multivitamin 1 tab PO QAM 01/18/18 08/14/20 History ondansetron 4 mg PO Q8H PRN #10 tab 08/13/20 08/14/20 Rx Allergies Allergy/AdvReac Type Severity Reaction Status Date / Time latex Allergy Severe Hives Verified 08/14/20 20:58 Penicillins Allergy Severe hives Verified 08/14/20 20:58 Sulfa (Sulfonamide Allergy Severe swelling Verified 08/14/20 20:58 Antibiotics) of throat clavulanic acid Allergy Mild UNKNOWN Verified 08/14/20 20:58 banana AdvReac Mild Heartburn Verified 08/14/20 20:58 Past Med/Surg History Medical History Abdominal cramping (09/15/13) Encounter for smoking cessation counseling Hip pain Leg pain Lumbar back pain with radiculopathy affecting right lower extremity Morbid obesity with BMI of 50.0-59.9, adult labor (10/01/13) Right lumbar radiculitis Surgical History H/O removal of cyst 2002 behind left ear H/O tubal ligation History of delivery Family History Mother Anxiety Depression Drug abuse Gallbladder disease Father Coronary heart disease Family/Other Prostate cancer Sister No problems noted. Other No significant family history Social History Smoking Status: Current every day smoker Age Started Using Tobacco: 18; Age Quit Using Tobacco: 28; packs per day: 1; Years Smoked: 10; Hx Alcohol Use: No Hx Substance Use: No Preferred Language: Nigerian Communication Ability: Effective Visual Impairment: No Limitations Hearing Ability: Normal Beliefs That Will Affect Care: None marital status: Current Living Situation: Family Current Living Situation Comment: "4 kids, Boyfriend, and I" current occupational status: unemployed Feels Safe at Home: Yes Assistive Devices: Walker Review of Systems See HPI for pertinent positives & negatives. and A total of 10 systems reviewed and were otherwise negative Physical Exam Vital Signs Vital Signs - 24 hr 08/14/20 19:39 08/14/20 19:56 08/14/20 20:45 Temperature 37 C Temperature Source Temporal Artery Scan Pulse Rate 78 69 Pulse Rate [Finger] 72 Pulse Rate from SpO2 Sensor 67 Pulse Rhythm [Finger] Regular Pulse Strength [Finger] Normal Respiratory Rate 18 18 16 Respiratory Effort / Characteristics Non-Labored Spontaneous Non-Labored Respiratory Depth Normal Normal Respiratory Pattern Regular Blood Pressure 166/100 H 158/85 H Blood Pressure [Left Arm] 157/103 H Blood Pressure Mean 122 109 Blood Pressure Mean [Left Arm] 121 Blood Pressure Position [Left Arm] Sitting Pulse Oximetry 97 98 96 Oxygen Delivery Method Room Air Room Air Sepsis Recent Fever Within 48 Hours No Sepsis New/Unexplained Change in Mental Status N/A Sepsis Action Taken by Nursing No Action Required 08/14/20 20:47 08/14/20 21:00 08/14/20 21:15 Temperature Temperature Source Pulse Rate 65 58 L 57 L Pulse Rate [Finger] Pulse Rate from SpO2 Sensor 62 60 59 L Pulse Rhythm [Finger] Pulse Strength [Finger] Respiratory Rate 14 22 20 Respiratory Effort / Characteristics Respiratory Depth Respiratory Pattern Blood Pressure 159/90 H Blood Pressure [Left Arm] Blood Pressure Mean 113 Blood Pressure Mean [Left Arm] Blood Pressure Position [Left Arm] Pulse Oximetry 97 94 95 Oxygen Delivery Method Sepsis Recent Fever Within 48 Hours Sepsis New/Unexplained Change in Mental Status Sepsis Action Taken by Nursing 08/14/20 21:30 08/14/20 21:31 08/14/20 22:19 Temperature Temperature Source Pulse Rate 64 58 L Pulse Rate [Finger] 81 Pulse Rate from SpO2 Sensor 68 61 85 Pulse Rhythm [Finger] Regular Pulse Strength [Finger] Normal Respiratory Rate 27 H 26 H 21 Respiratory Effort / Characteristics Non-Labored Respiratory Depth Normal Respiratory Pattern Blood Pressure 164/107 H 144/90 H Blood Pressure [Left Arm] 144/90 H Blood Pressure Mean 126 108 Blood Pressure Mean [Left Arm] 108 Blood Pressure Position [Left Arm] Lying Pulse Oximetry 96 95 97 Oxygen Delivery Method Room Air Sepsis Recent Fever Within 48 Hours Sepsis New/Unexplained Change in Mental Status Sepsis Action Taken by Nursing 08/14/20 22:20 08/14/20 22:30 08/14/20 22:45 Temperature Temperature Source Pulse Rate Pulse Rate [Finger] Pulse Rate from SpO2 Sensor 61 61 60 Pulse Rhythm [Finger] Pulse Strength [Finger] Respiratory Rate Respiratory Effort / Characteristics Respiratory Depth Respiratory Pattern Blood Pressure 108/70 Blood Pressure [Left Arm] Blood Pressure Mean 82 Blood Pressure Mean [Left Arm] Blood Pressure Position [Left Arm] Pulse Oximetry 95 93 94 Oxygen Delivery Method Sepsis Recent Fever Within 48 Hours Sepsis New/Unexplained Change in Mental Status Sepsis Action Taken by Nursing 08/14/20 23:00 08/14/20 23:15 08/14/20 23:30 Temperature Temperature Source Pulse Rate Pulse Rate [Finger] Pulse Rate from SpO2 Sensor 74 68 53 L Pulse Rhythm [Finger] Pulse Strength [Finger] Respiratory Rate Respiratory Effort / Characteristics Respiratory Depth Respiratory Pattern Blood Pressure 118/66 129/74 Blood Pressure [Left Arm] Blood Pressure Mean 83 92 Blood Pressure Mean [Left Arm] Blood Pressure Position [Left Arm] Pulse Oximetry 96 94 94 Oxygen Delivery Method Sepsis Recent Fever Within 48 Hours Sepsis New/Unexplained Change in Mental Status Sepsis Action Taken by Nursing GENERAL: alert, uncomfortable appearing, well nourished, mild distress, non- toxic, BMI>40 EYE EXAM: normal conjunctiva, PERRL and EOM's grossly intact OROPHARYNX: no exudate, no erythema, lips, buccal mucosa, and tongue normal and mucous membranes are moist NECK: supple, no nuchal rigidity, no adenopathy, non-tender LUNGS: Clear to auscultation. Normal chest wall mechanics, no w/r/r HEART: no murmurs, S1 normal and S2 normal ABDOMEN: abdomen soft, tenderness in the epigastric region with palpation, normo-active bowel sounds, no masses, no rebound or guarding. BACK: Back is symmetrical on inspection and there is no deformity, no midline tenderness, no CVA tenderness. SKIN: no rashes and no bruising UPPER EXTREMITIES: upper extremities are grossly normal. FROM, nml pulses b/l. LOWER EXTREMITIES: No pitting edema. FROM, nml pulses b/l. NEURO EXAM: Normal sensorium, cranial nerves II-XII grossly intact, normal speech, no gross weakness of arms, no gross weakness of legs. Gross sensation intact. Course Course 2244: Discussed with Brad Ayala PA-C with gen surg. 2252: Pt updated. Administered Medications Discontinued Medications Prochlorperazine (Compazine) 1 mls @ 1 mls/min IV ONE ONE Stop: 08/14/20 20:25 Last Admin: 08/14/20 20:33 Dose: 1 mls/min Documented by: [id number] Acetaminophen (Ofirmev) 1,000 mg in 100 mls @ 400 mls/hr IV NOW STA Stop: 08/14/20 20:38 Last Infusion: 08/14/20 21:22 Dose: 0 mls/hr Documented by: [id number] Admin: 08/14/20 20:32 Dose: 400 mls/hr Documented by: [id number] Sodium Chloride (Nss 1000ml) 1,000 mls @ 999 mls/hr IV .Q1H1M ONE Stop: 08/14/20 21:24 Last Infusion: 08/14/20 21:23 Dose: 0 mls/hr Documented by: [id number] Admin: 05/14/21 20:24 Dose: 999 mls/hr Documented by: [id number] Sodium Chloride (Nss 1000ml) 1,000 mls @ 125 mls/hr IV .Q8H SCOTT Stop: 09/13/20 22:59 Last Admin: 08/14/20 23:22 Dose: 125 mls/hr Documented by: [id number] Morphine Sulfate (Morphine Sulfate 4 Mg/Ml 1 Ml Carp\\Vial) 4 mg IV NOW STA Stop: 08/14/20 22:00 Last Admin: 08/14/20 22:15 Dose: 4 mg Documented by: [id number] Morphine Sulfate (Morphine Sulfate 4 Mg/Ml 1 Ml Carp\\Vial) 4 mg IV NOW STA Stop: 08/14/20 23:01 Last Admin: 08/14/20 23:21 Dose: 4 mg Documented by: [id number] Ondansetron HCl (Ondansetron Inj 2 Mg/Ml 2 Ml Vial) 4 mg IV NOW STA Stop: 08/14/20 23:01 Last Admin: 08/14/20 23:22 Dose: 4 mg Documented by: [id number] Medical Decision Making Differential Diagnosis Differential diagnoses includes but is not limited to gastritis, peptic ulcer disease, GERD, gallbladder disease, pancreatitis, small bowel obstruction, acute coronary syndrome, pericarditis, ischemic bowel, irritable bowel disease, irritable bowel syndrome, appendicitis, diverticulitis, malignancy, hernia, urinary tract infection, torsion, [/ectopic (if female)], perforation, trauma, infectious. Medical Records Attestation: I reviewed the patient's medical records. Home Medications Current Medication List: was personally reviewed by me Laboratory Data Attestation: I reviewed the patient's lab results. Result diagrams: 08/14/20 19:50 08/14/20 19:50 Lab Results 08/14/20 08/14/20 08/14/20 Range/Units 19:50 19:50 23:20 WBC 17.02 H (4.8-10.8) K/uL RBC 4.78 (4.2-5.4) M/uL Hgb 14.8 (12.0-16.0) g/dL Hct 44.2 (37-47) % MCV 92.5 (80-100) fL MCH 31.0 (25-34) pg MCHC 33.5 (32-36) g/dL RDW Std Deviation 46.1 (36.4-46.3) fL RDW Coeff of Gracia 13.6 (11.5-14.5) % Plt Count 365 (130-400) K/uL MPV 11.4 H (7.4-10.4) fL Immature Gran % (Auto) 0.2 % Neut % (Auto) 66.1 % Lymph % (Auto) 23.9 % [place] % (Auto) 9.2 % Eos % (Auto) 0.5 % Baso % (Auto) 0.1 % Neut # (Auto) 11.24 H (1.4-6.5) K/uL Lymph # (Auto) 4.06 H (1.2-3.4) K/uL [place] # (Auto) 1.57 H (0.11-0.59) K/uL Eos # (Auto) 0.09 (0-0.5) K/uL Baso # (Auto) 0.02 (0-0.2) K/uL Immature Gran # (Auto) 0.04 H (0.00-0.02) K/uL Sodium 138 (136-145) mmol/L Potassium 3.9 (3.5-5.1) mmol/L Chloride 106 (98-107) mmol/L Carbon Dioxide 25 (21-32) mmol/L Anion Gap 7.0 (3-11) BUN 14 (7-18) mg/dl Creatinine 0.70 (0.6-1.2) mg/dl Est Cr Clr Drug Dosing 177.8 ml/min Est GFR ( Amer) 135.7 ml/min Est GFR (Non-Af Amer) 117.1 ml/min BUN/Creatinine Ratio 19.3 (10-20) Glucose 100 H (70-99) mg/dl Calcium 9.3 (8.5-10.1) mg/dl Total Bilirubin 0.2 (0.2-1) mg/dl AST 17 (15-37) U/L ALT 33 (12-78) U/L Alkaline Phosphatase 98 (45-117) U/L Total Protein 7.8 (6.4-8.2) gm/dl Albumin 3.7 (3.4-5.0) gm/dl Globulin 4.1 H (2.5-4.0) gm/dl Albumin/Globulin Ratio 0.9 (0.9-2) Lipase 98 (73-393) U/L COVID-19 Eval Order Covid19 at [facility] SARS-CoV-2 (PCR) (Negative) 08/14/20 Range/Units 23:20 WBC (4.8-10.8) K/uL RBC (4.2-5.4) M/uL Hgb (12.0-16.0) g/dL Hct (37-47) % MCV (80-100) fL MCH (25-34) pg MCHC (32-36) g/dL RDW Std Deviation (36.4-46.3) fL RDW Coeff of Gracia (11.5-14.5) % Plt Count (130-400) K/uL MPV (7.4-10.4) fL Immature Gran % (Auto) % Neut % (Auto) % Lymph % (Auto) % [place] % (Auto) % Eos % (Auto) % Baso % (Auto) % Neut # (Auto) (1.4-6.5) K/uL Lymph # (Auto) (1.2-3.4) K/uL [place] # (Auto) (0.11-0.59) K/uL Eos # (Auto) (0-0.5) K/uL Baso # (Auto) (0-0.2) K/uL Immature Gran # (Auto) (0.00-0.02) K/uL Sodium (136-145) mmol/L Potassium (3.5-5.1) mmol/L Chloride (98-107) mmol/L Carbon Dioxide (21-32) mmol/L Anion Gap (3-11) BUN (7-18) mg/dl Creatinine (0.6-1.2) mg/dl Est Cr Clr Drug Dosing ml/min Est GFR ( Amer) ml/min Est GFR (Non-Af Amer) ml/min BUN/Creatinine Ratio (10-20) Glucose (70-99) mg/dl Calcium (8.5-10.1) mg/dl Total Bilirubin (0.2-1) mg/dl AST (15-37) U/L ALT (12-78) U/L Alkaline Phosphatase (45-117) U/L Total Protein (6.4-8.2) gm/dl Albumin (3.4-5.0) gm/dl Globulin (2.5-4.0) gm/dl Albumin/Globulin Ratio (0.9-2) Lipase (73-393) U/L COVID-19 Eval Order SARS-CoV-2 (PCR) NEGATIVE (Negative) Imaging Data Radiologist's Impression: Ultrasound right upper quadrant: Comparison: Abdominal ultrasound 08/13/2020. Cholelithiasis with possible non-mobile stone at the gallbladder neck. Borderline gallbladder wall thickness measuring 3mm. However, the gallbladder is partially contracted, which may contribute to thickening. Sonographic Saez sign is reported as positive. Overall findings not highly suggestive of acute cholecystitis, but clinical correlation is recommended. Common bile duct measures 6 mm, borderline enlarged, of uncertain clinical significance. If there is laboratory evidence of biliary obstruction, consider MRCP. No hydronephrosis of the right kidney. Hepatomegaly and steatosis. Radiologist: Brock Granger MD ECG Data Attestation: I personally reviewed and interpreted this ECG as follows: Indication: + abdominal pain Rate (beats per minute): 57 Rhythm: + sinus bradycardia ECG Intervals/blocks: + Normal QRS and + Normal QT ECG [place]: + Normal ECG ST segments: + Normal ST segments MDM Narrative This is a 29-year-old female who presents with worsening abdominal pain and nausea despite recent evaluation in the emergency department yesterday. Patient was sent home with medication including Zofran which she states has not helped with her nausea. Patient states the pain is been persistent, without any im provement. Patient did have extensive evaluation yesterday including labs, ultrasound, urinalysis, and CT imaging. Patient was found to have cholelithiasis although no evidence of cholecystitis at that time. On repeat evaluation this evening. Patient's leukocytosis is worsening, now up to 17. No abnormal LFTs or lipase. Renal function intact. No significant electrolyte abnormalities. Patient given several doses of pain and nausea medication without resolution. Repeat ultrasound did show worsening findings by comparison and I suspect this is related to evolving cholecystitis. Case discussed with physician credentialing assistant covering general surgery on-call this evening. He came and evaluated the patient at bedside, and will admit the patient to general surgery service primarily. Patient made hemodynamically stable throughout. I do not suspect anchor otitis, ascending cholangitis, choledocholithiasis, GI bleed, peptic ulcer disease, bacteremia/sepsis. Patient did have a negative test yesterday while here. Patient does not use any antiplatelet or anticoagulation therapy. An order was placed for continuous cardiac monitoring. The monitor shows a rate of _86_ with __normal sinus_ rhythm. Impression & Plan Abdominal pain, Nausea and vomiting, Cholelithiasis Discharge Plan Visit Data Chief Complaint: Vomiting Stated Complaint: SHARP STOMACH PAIN, VOMITING ED Provider: Maria Esther Hanna Discharge Problem: Abdominal pain, Nausea and vomiting, Cholelithiasis Patient Disposition: Admitted As Inpatient Discharge Instructions Interventions: ED Discharge Assessment Last Done: 08/15/20 00:38 Discharge Problem: Abdominal pain Qualifiers: Abdominal location: epigastric Qualified Code(s): R10.13 - Epigastric pain Nausea and vomiting Qualifiers: Vomiting type: unspecified Vomiting Intractability: non-intractable Qualified Code(s): R11.2 - Nausea with vomiting, unspecified Cholelithiasis Qualifiers: Cholelithiasis location: gallbladder Cholecystitis presence: with cholecystitis Cholecystitis acuity: acute Biliary obstruction: without biliary obstruction Qualified Code(s): K80.00 - Calculus of gallbladder with acute cholecystitis without obstruction
[2020-08-14 21:28] LABS: Basophils # (auto) 0.02 K/uL (0-0.2); Basophils % (auto) 0.1 %; Eosinophils # (auto) 0.09 K/uL (0-0.5); Eosinophils % (auto) 0.5 %; Hematocrit (blood only) 44.2 % (37-47); Hemoglobin 14.8 g/dL (12.0-16.0); Immature Granulocytes # (auto) 0.04 K/uL (0.00-0.02); Immature Granulocytes % (auto) 0.2 %; Lymphocytes # (auto) 4.06 K/uL (1.2-3.4); Lymphocytes % (auto) 23.9 %; Mean Corpuscular Hgb Conc 33.5 g/dL (32-36); Mean Corpuscular Volume 92.5 fL (80-100); Mean Platelet Volume 11.4 fL (7.4-10.4); Monocytes # (auto) 1.57 K/uL (0.11-0.59); Monocytes % (auto) 9.2 %; Neutrophils # (auto) 11.24 K/uL (1.4-6.5); Neutrophils % (auto) 66.1 %; Platelet Count 365 K/uL (130-400); RDW Coefficient of Variation 13.6 % (11.5-14.5); RDW Standard Deviation 46.1 fL (36.4-46.3); Red Blood Count 4.78 M/uL (4.2-5.4); White Blood Count 17.02 K/uL (4.8-10.8)
[2020-08-14 21:36] LABS: Albumin Level 3.7 gm/dl (3.4-5.0); BUN Creatinine Ratio 19.3 (10-20); Calcium 9.3 mg/dl (8.5-10.1); Creatinine Clr Calc Pharmacy 177.8 ml/min; Est GFR (African American) 135.7 ml/min; Est GFR (Non-African American) 117.1 ml/min; Potassium 3.9 mmol/L (3.5-5.1)
[2020-08-14 21:39] LABS: Albumin Globulin Ratio 0.9 (0.9-2); Bilirubin,Total 0.2 mg/dl (0.2-1); Globulin 4.1 gm/dl (2.5-4.0); Total Protein 7.8 gm/dl (6.4-8.2)
[2020-08-14] MEDS ORDERED: MoRPHine SULFATE 4 MG/ML 1 ML CARP\\VIAL IV STA ×2 (21:59→23:00)
[2020-08-14] MEDS ORDERED: ONDANSETRON INJ 2 MG/ML 2 ML VIAL IV STA (23:00)
[2020-08-14] MEDS ORDERED: SODIUM CHLORIDE 0.9% 1000ML 1,000 ML IV SCH (23:00)
--- NOTE | 2020-08-14 23:29 | History & Physical Report ---
Date of Service August 14, 2020 Assessment & Plan (1) Cholelithiasis: Based on patient's imaging and clinical presentation it appears as though her cholelithiasis may be the culprit for her abdominal pain. We will therefore admit her to the hospital and proceed as follows: Provide antiemetics Provide analgesics We will place her on antibiotics. As she does have an allergy to penicillin and sulfa we will place her on Cipro and Flagyl We will keep the patient n.p.o. We will hydrate her with IV fluids We will plan on performing a cholecystectomy tomorrow. I discussed the procedure with the patient. Further discussion regarding this procedure will be undertaken by my attending physician Dr. Juan Vega prior to surgery. -We will Covid test this patient Further recommendations were made based on her clinical course as it unfolds as well as operative findings. We will utilize SCDs for DVT prevention. We will not use chemical means due to anticipated surgery tomorrow. History of Present Illness Chief Complaint: Abdominal pain Primary Care Provider: Samy Sky MD This is a 29-year-old female who presented to [facility] emergency department secondary to abdominal pain. Patient notes that yesterday she had abdominal pain that woke her from her sleep at approximately 3:00 AM. She noted that the pain was located primarily in the epigastric area. The pain did not radiate. She did not identify any palliative factors but did note that the pain seemed to be worse approximately 30 minutes after eating. In the emergency department the patient had a CT scan of the abdomen that did not show any acute findings other than cholelithiasis. She also had a gallbladder ultrasound that showed cholelithiasis and no evidence of acute cholecystitis. Patient was ultimately discharged home. Today she returned to the emergency department as she noted that her pain returned. She noted that the pain o ccurred proximally 20 to 30 minutes after eating a meal. Again she noted the pain was primarily located in the epigastric area without radiation. She did not note any palliative factors. He denies any fevers, shakes, chills. She did have associated nausea vomiting. She denies any diarrhea. Today in the emergency department patient had a repeat ultrasound of her gallbladder that showed cholelithiasis with a stone located in the gallbladder neck. The gallbladder wall was moderately thickened and was characterized as borderline. There is no pericholecystic fluid. During her ultrasound a positive sonographic Saez sign was noted. She did have labs where her white blood cell count was 17,000. Her hemoglobin, hematocrit, and platelet count were noted be within normal range. Chemistry profile showed her sodium, potassium, BUN, and creatinine were all within normal range. Her lipase was not elevated and her LFTs were normal. test was noted to be negative. Patient notes that when she is feeling well she is quite active. She says that she does not get chest pain or shortness of breath and feels she can negotiate a least 2 flights of steps and walk a mile on a flat surface without any limiting factors. In the emergency department she was resting comfortably in bed in no distress. Allergies Allergy/AdvReac Type Severity Reaction Status Date / Time latex Allergy Severe Hives Verified 08/14/20 20:58 Penicillins Allergy Severe hives Verified 08/14/20 20:58 Sulfa (Sulfonamide Allergy Severe swelling Verified 08/14/20 20:58 Antibiotics) of throat clavulanic acid Allergy Mild UNKNOWN Verified 08/14/20 20:58 banana AdvReac Mild Heartburn Verified 08/14/20 20:58 Home Medications Medication Instructions Recorded Confirmed Type multivitamin 1 tab PO QAM 01/18/18 08/14/20 History ondansetron 4 mg PO Q8H PRN #10 tab 08/13/20 08/14/20 Rx Past Med/Surg History Medical History (Updated 08/15/20 @ 07:28 by Jim Kemp MD) Abdominal cramping (09/15/13) Encounter for smoking cessation counseling Hip pain Leg pain Lumbar back pain with radiculopathy affecting right lower extremity Marijuana smoker Morbid obesity with BMI of 50.0-59.9, adult labor (10/01/13) Right lumbar radiculitis Surgical History H/O removal of cyst 2002 behind left ear H/O tubal ligation History of delivery Family History Mother Anxiety Depression Drug abuse Gallbladder disease Father Coronary heart disease Family/Other Prostate cancer Sister No problems noted. Other No significant family history Social History Smoking Status: Current every day smoker Age Started Using Tobacco: 18; Age Quit Using Tobacco: 28; packs per day: 1; Years Smoked: 10; Hx Alcohol Use: No Hx Substance Use: Yes Last Used Substance: Days (ago) Preferred Language: Citizen Of [place] Communication Ability: Effective Visual Impairment: No Limitations Hearing Ability: Normal Beliefs That Will Affect Care: None marital status: Current Living Situation: Significant Other Current Living Situation Comment: "4 kids, Boyfriend, and I" current occupational status: unemployed Other Information That Helps Us Care for You: No Feels Safe at Home: Yes Safety Concerns: Feels Safe At This Time Assistive Devices: None Review of Systems Constitutional: no fever and no chills Eyes: no diplopia Ear, Nose, Mouth, Throat: no ear pain Respiratory: no cough and no dyspnea Cardiovascular: no chest pain Gastrointestinal: + abdominal pain, + nausea and + vomiting; no diarrhea/loose stools Genitourinary: no dysuria Musculoskeletal: no back pain Integumentary: no rash Neurologic: no generalized weakness Physical Exam Constitutional: well developed, well nourished and + obese; no acute distress Eyes: + anicteric sclerae; no conjunctival abnormality ENMT: Ears: no hearing impairment Neck: trachea midline Respiratory: normal respiratory effort, lungs clear to auscultation Cardiovascular: Rate/Rhythm: regular rate and regular rhythm Gastrointestinal (Abdomen): Abdomen is rotund but soft. Bowel sounds are positive. There is no rebound tenderness or guarding. Patient did have pain with palpation in the right upper quadrant with a positive Saez sign noted. She did not exhibit any epigastric pain with palpation. Musculoskeletal: No calf tenderness Skin: no rashes, warm and dry Neurologic: moves all extremities Psychiatric: A+Ox3, euthymic affect Results & Data Results & Data ([facility]) Vital Signs (Past 12 Hours) Vital Signs Temp Pulse Pulse Resp BP BP Pulse Ox 08/14/20 22:19 81 21 144/90 H 100 08/14/20 19:56 72 18 157/103 H 98 08/14/20 19:39 37 C 78 18 166/100 H 97 Supervising Physician Co-Signing Physician Notes I personally saw and evaluated the patient with Edgar Ayala PA-C and agree with the assessment and plan. 29 yo female with acute cholecystitis -NPO -ABX -To OR today for laparoscopic cholecystectomy -Consent obtained, risks discussed including bleeding, infection, bile leak, ductal injury PG Care Time/CCT Total # of Minutes Spent Total Time Spent with Patient: Total time spent is greater than 50% in coordination of care (as documented) at patient's floor/unit and/or counseling patient: Coding Level of Care Code 13465 OBS Care - Level 3 Diagnoses Cholelithiasis K80.20 Biliary obstruction: without biliary obstruction Cholecystitis presence: without cholecystitis Cholelithiasis location: gallbladder (1) Cholelithiasis Biliary obstruction: without biliary obstruction Cholecystitis presence: wi thout cholecystitis Cholelithiasis location: gallbladder Qualified Code(s): K80.20 - Calculus of gallbladder without cholecystitis without obstruction
[2020-08-15] MEDS ORDERED: ACETAMINOPHEN 1,000 MG/100 ML VIAL IV PRN (01:13)
[2020-08-15] MEDS: CIPROFLOXACIN / D5W 400 MG/200 ML BAG IV SCH ×2 (02:07→14:01)
[2020-08-15] MEDS: LACTATED RINGER'S 1,000 ML IV SCH ×3 (02:07→22:07)
[2020-08-15] MEDS: MoRPHine SULFATE 4 MG/ML 1 ML CARP\\VIAL IV PRN ×6 (02:07→23:00)
[2020-08-15] MEDS: metroNIDAZOLE 500 MG/100 ML BAG IV SCH ×3 (02:07→17:47)
[2020-08-15] MEDS: ONDANSETRON INJ 2 MG/ML 2 ML VIAL IV PRN ×2 (03:46→11:36)
--- NOTE | 2020-08-15 05:41 | Surgery Progress Note ---
Date of Service August 15, 2020 Assessment & Plan (1) Cholelithiasis: As noted at time of admission patient symptoms may be related to her gallstones.: Repeat labs are ordered for this morning which are pending We will continue analgesics We will continue antiemetics We will continue antibiotics in the form of Cipro and Flagyl We will continue IV fluids We will plan for laparoscopic, possible open cholecystectomy this morning. Informed consent has been obtained. Preoperative Covid test has been obtained and is noted to be negative. Further recommendation will be made based on operative findings and her postoperative course Use SCDs for DVT prevention. We will consider adding chemical means once her surgery is completed. Admission and Anticipated Discharge Date Admission Date: August 14, 2020 Supervising Physician Co-Signing Physician Notes I personally saw and evaluated the patient with Edgar Ayala PA-C and agree with the assessment and plan. 29 yo female with acute cholecystitis -NPO -ABX -To OR today for laparoscopic cholecystectomy -Consent obtained, risks discussed including bleeding, infection, bile leak, ductal injury Subjective Patient is currently resting comfortably in bed. She notes she was able to get some sleep last night since admission. She continues to have right upper quadrant abdominal pain which is somewhat relieved by pain medicines that are being administered. Currently she has no nausea or vomiting. No fevers, shakes, chills. Physical Exam Gastrointestinal (Abdomen): Abdomen is rotund and soft. Pain noted with palpation in the right upper quadrant Results & Data ([facility]) Vital Signs (Past 12 Hours) Vital Signs Temp Pulse Pulse Resp BP BP Pulse Ox 08/15/20 01:13 37.3 C 73 16 154/96 H 97 08/15/20 00:30 127/78 96 08/15/20 00:20 93 08/15/20 00:10 93 08/15/20 00:00 95 08/14/20 23:45 94 08/14/20 23:30 129/74 94 08/14/20 23:15 94 08/14/20 23:00 118/66 96 08/14/20 22:45 94 08/14/20 22:30 108/70 93 08/14/20 22:20 95 08/14/20 22:19 81 21 144/90 H 144/90 H 97 08/14/20 21:31 58 L 26 H 95 08/14/20 21:30 64 27 H 164/107 H 96 08/14/20 21:15 57 L 20 95 08/14/20 21:00 58 L 22 159/90 H 94 08/14/20 20:47 65 14 97 08/14/20 20:45 69 16 158/85 H 96 08/14/20 19:56 72 18 157/103 H 98 08/14/20 19:39 37 C 78 18 166/100 H 97 PG Care Time/CCT Total # of Minutes Spent Total Time Spent with Patient: Total time spent is greater than 50% in c oordination of care (as documented) at patient's floor/unit and/or counseling patient: Coding Level of Care Code 75211 Subseq Hosp Care Lvl 1 Diagnoses Cholelithiasis K80.00 Biliary obstruction: without biliary obstruction Cholecystitis acuity: acute Cholecystitis presence: with cholecystitis Cholelithiasis location: gallbladder (1) Cholelithiasis Biliary obstruction: without biliary obstruction Cholecystitis acuity: acute Cholecystitis presence: with cholecystitis Cholelithiasis location: gallbladder Qualified Code(s): K80.00 - Calculus of gallbladder with acute cholecystitis without obstruction
[2020-08-15 06:13] LABS: Basophils # (auto) 0.01 K/uL (0-0.2); Basophils % (auto) 0.1 %; Eosinophils # (auto) 0.06 K/uL (0-0.5); Eosinophils % (auto) 0.4 %; Hematocrit (blood only) 40.8 % (37-47); Hemoglobin 13.6 g/dL (12.0-16.0); Immature Granulocytes # (auto) 0.03 K/uL (0.00-0.02); Immature Granulocytes % (auto) 0.2 %; Lymphocytes # (auto) 4.29 K/uL (1.2-3.4); Lymphocytes % (auto) 29.4 %; Mean Corpuscular Hemoglobin 30.3 pg (25-34); Mean Corpuscular Volume 90.9 fL (80-100); Mean Platelet Volume 10.6 fL (7.4-10.4); Monocytes # (auto) 1.53 K/uL (0.11-0.59); Monocytes % (auto) 10.5 %; Neutrophils # (auto) 8.69 K/uL (1.4-6.5); Neutrophils % (auto) 59.4 %; Platelet Count 293 K/uL (130-400); RDW Coefficient of Variation 13.3 % (11.5-14.5); RDW Standard Deviation 44.3 fL (36.4-46.3); Red Blood Count 4.49 M/uL (4.2-5.4); White Blood Count 14.61 K/uL (4.8-10.8)
[2020-08-15 06:26] LABS: Mean Corpuscular Hgb Conc 33.3 g/dL (32-36)
[2020-08-15 06:40] LABS: Alanine Aminotransferase 28 U/L (12-78); Albumin Level 3.2 gm/dl (3.4-5.0); Aspartate Aminotransferase 12 U/L (15-37); BUN Creatinine Ratio 12.8 (10-20); Blood Urea Nitrogen 7 mg/dl (7-18); Calcium 8.5 mg/dl (8.5-10.1); Carbon Dioxide 27 mmol/L (21-32); Chloride 108 mmol/L (98-107); Creatinine Clr Calc Pharmacy 244.9 ml/min; Est GFR (African American) > 150.0 ml/min; Est GFR (Non-African American) 129.9 ml/min; Glucose 98 mg/dl (70-99); Potassium 3.9 mmol/L (3.5-5.1); Sodium 139 mmol/L (136-145)
[2020-08-15 06:43] LABS: Albumin Globulin Ratio 0.8 (0.9-2); Alkaline Phosphatase 84 U/L (45-117); Bilirubin,Total 0.3 mg/dl (0.2-1); Globulin 3.8 gm/dl (2.5-4.0)
[2020-08-15] MEDS ORDERED: MIDAZOLAM HCL 1 MG/ML 2ML VIAL ONE (07:06)
[2020-08-15] MEDS ORDERED: fentaNYL citrate 100 MCG/2 ML VIAL ONE ×2 (07:06→07:54)
[2020-08-15] MEDS ORDERED: LIDOCAINE HCL 2% 2 ML VIAL/AMP(20MG/ML) INFIL ONE (07:10)
[2020-08-15] MEDS ORDERED: ROCURONIUM BROMIDE 10 MG/ML 5 ML VIAL IV ONE ×3 (07:10→08:15)
[2020-08-15] MEDS ORDERED: BUPIVACAINE 0.25% 30 ML VIAL ONE (07:10)
[2020-08-15] MEDS ORDERED: EPINEPHrine INJ 1 MG/ML AMP ONE (07:10)
[2020-08-15] MEDS ORDERED: PROPOFOL IV EMULSION 10 MG/ML 20 ML VIAL IV ONE ×2 (07:10→09:30)
[2020-08-15] MEDS ORDERED: ONDANSETRON INJ 2 MG/ML 2 ML VIAL ONE ×2 (07:11→07:47)
[2020-08-15] MEDS ORDERED: DEXAMETHASONE SOD INJ 4 MG/ML VIAL ONE (07:11)
--- NOTE | 2020-08-15 07:11 | History & Physical Bridge Note ---
Date of Service August 15, 2020 History & Physical Bridge Note I have examined the patient, reviewed the History & Physical and in the interval since the performance of the History & Physical I have noted the following changes of clinical significance: no changes noted
--- NOTE | 2020-08-15 07:27 | Anesthesiology Consultation ---
Date of Service August 15, 2020 Covid 19 negative on 08/14/20. Assessment & Plan (1) Encounter for pre-operative examination: Chart Review Chart Review: Acceptable Risk for Surgery and Patient NOT seen in Pre Admission Testing Consults Requested none History Surgery Operation Date: 08/15/20 10:00 Proposed Procedures p Laparoscopic Cholecystectomy - Juan Vega, DO Height/Weight Height: 5 ft 8 in Weight: 142.4 kg Allergies Allergy/AdvReac Type Severity Reaction Status Date / Time latex Allergy Severe Hives Verified 08/14/20 20:58 Penicillins Allergy Severe hives Verified 08/14/20 20:58 Sulfa (Sulfonamide Allergy Severe swelling Verified 08/14/20 20:58 Antibiotics) of throat clavulanic acid Allergy Mild UNKNOWN Verified 08/14/20 20:58 banana AdvReac Mild Heartburn Verified 08/14/20 20:58 Medications Home Medications Medication Instructions Recorded Confirmed Last Taken multivitamin 1 tab PO QAM 01/18/18 08/14/20 08/14/20 ondansetron 4 mg PO Q8H PRN #10 tab 08/13/20 08/14/20 08/14/20 17:20 Active Medications Generic Name Dose Route Start Last Admin Trade Name Freq PRN Reason Stop Dose Admin Lactated Ringer's 1,000 mls @ 100 mls/hr 08/15/20 01:13 08/15/20 02:07 Lr IV 09/14/20 01:12 100 mls/hr .Q10H SCOTT Administration Ciprofloxacin 400 mg in 200 mls @ 100 mls/hr 08/15/20 02:00 08/15/20 04:15 Cipro / D5w IV 08/25/20 01:59 Infused Q12H SCOTT Infusion Protocol Metronidazole 500 mg in 100 mls @ 100 mls/hr 08/15/20 02:00 08/15/20 03:10 Flagyl IV 08/25/20 01:59 Infused Q8H SCOTT Infusion Morphine Sulfate 3 mg 08/15/20 01:13 08/15/20 05:19 Morphine Sulfate 4 Mg/Ml 1 Ml Carp\Vial IV 08/29/20 01:12 3 mg Q3H PRN Administration Pain Ondansetron HCl 4 mg 08/15/20 01:13 08/15/20 03:46 Ondansetron Inj 2 Mg/Ml 2 Ml Vial IV 09/14/20 01:12 4 mg Q6H PRN Administration Nausea And Vomiting Past Medical History Medical History (Updated 08/15/20 @ 07:28 by Jim Kemp MD) Abdominal cramping (09/15/13) Encounter for smoking cessation counseling Hip pain Leg pain Lumbar back pain with radiculopathy affecting right lower extremity Marijuana smoker Morbid obesity with BMI of 50.0-59.9, adult labor (10/01/13) Right lumbar radiculitis Past Family History Family History Mother Anxiety Depression Drug abuse Gallbladder disease Father Coronary heart disease Family/Other Prostate cancer Sister No problems noted. Other No significant family history Past Surgical History Surgical History H/O removal of cyst 2002 behind left ear H/O tubal ligation History of delivery Social History Smoking Status: Current every day smoker tobacco type: cigarettes Hx Alcohol Use: No Hx Substance Use: Yes substance use type: marijuana Last Used Substance: Days (ago) Physical Exam Vital Signs Last Vital Signs Temp 36.9 C 08/15/20 07:19 Pulse 85 08/15/20 07:19 Resp 16 08/15/20 07:19 BP 133/80 08/15/20 07:19 Pulse Ox 97 08/15/20 07:19 Testing Laboratory Results 08/15/20 05:53 08/15/20 05:53 Electrocardiogram Date: 08/14/20 SB with sinus arrhythmia, rate [address] SCAN OF THE ABDOMEN AND PELVIS WITH IV CONTRAST CLINICAL HISTORY: Generalized abdominal pain. Back pain. Nausea and vomiting. COMPARISON STUDY: Abdominal CT dated 09/23/2011. TECHNIQUE: Following the IV administration of 117 cc of Optiray 350, CT scan of the abdomen and pelvis is performed from the lung bases to the proximal femora. Images are reviewed in the axial, sagittal, and coronal planes. IV contrast was administered without complication. A dose lowering technique was utilized adhering to the principles of ALARA. CT DOSE: 2335.90 mGy.cm FINDINGS: Lung bases: The heart is normal in size and without pericardial effusion. The lung bases are clear noting dependent atelectasis. Liver: The contrast-enhanced liver is normal in size, contour, and attenuation. There is no intrahepatic biliary ductal dilatation. The hepatic veins and portal veins are patent. Gallbladder: There are calcified gallstones with no CT evidence of acute cholecystitis. Spleen: Normal in size and attenuation. Pancreas: Unremarkable. Adrenal glands: Unremarkable. Kidneys: The contrast enhanced kidneys are normal in size and without hydronephrosis. The kidneys enhance symmetrically. Abdominal vasculature: The abdominal aorta is normal in course and caliber. Bowel: There is no bowel obstruction. The appendix is well-visualized and normal. Peritoneum: There is no intraperitoneal free air or abdominal ascites. There is a small fat-containing umbilical hernia. Lymphadenopathy: None. Pelvic viscera: An indeterminant foreign body is noted in the vagina. The bladder, uterus, and adnexa are otherwise normal as visualized. There are bilateral ovarian follicles. Skeletal structures: No lytic or blastic lesions are seen. IMPRESSION: 1. There are no acute infectious or inflammatory findings in the abdomen or pelvis. 2. Cholelithiasis. 3. An indeterminant foreign body is noted in the vagina. Clinical correlation will be required. ACT 112: Negative or not required by law. Electronically signed by: Reynaldo García M.D. 08/13/2020 11:43 AM Dictated: 08/13/20 1137
[2020-08-15] MEDS ORDERED: ePHEDrine sulfate 50 MG/ML AMP IV PRN (07:30)
[2020-08-15] MEDS ORDERED: ONDANSETRON INJ 2 MG/ML 2 ML VIAL IV PRN (07:30)
[2020-08-15] MEDS ORDERED: LABETALOL HCL IV 5 MG/ML 20ML IV PRN (07:30)
[2020-08-15] MEDS ORDERED: MEPERIDINE HCL 25 MG/ML CARP/VIAL IV PRN (07:30)
[2020-08-15] MEDS ORDERED: ATROPINE SULFATE 0.1 MG/ML 10ML SYR IV PRN (07:30)
[2020-08-15] MEDS ORDERED: HYDROmorphone INJ 1 MG/ML SYRINGE IV PRN (07:30)
[2020-08-15] MEDS ORDERED: fentaNYL citrate 100 MCG/2 ML VIAL IV PRN (07:30)
[2020-08-15] MEDS ORDERED: PHENYLEPHRINE 100MCG/ML 5ML SYR IV PRN (07:30)
--- NOTE | 2020-08-15 07:46 | Ultrasound Report ---
US gallbladder CLINICAL HISTORY: epigastric pain, known cholelithiasis COMPARISON STUDY: CT of the abdomen and pelvis August 13, 2020. Right upper quadrant ultrasound Decembe r 2012. FINDINGS: Hepatic echogenicity is increased. No hepatic lesions are identified. There is no biliary d uctal dilatation. The common bile duct measures 6 mm in caliber. The pancreatic body is normal. Head and tail are obscured. Multiple gallstones are noted within the gallbladder including a nonmobile gal lstone within the neck. The gallbladder is not distended. Borderline gallbladder wall thickening is n oted with wall measuring 3 mm in thickness. Sonographic Saez sign was reported by the oracle database architect. There is no right hydronephrosis. IMPRESSION: 1. Cholelithiasis with nonmobile stone within the gallbladder neck. Borderline gallbladder wall thick ening. Positive sonographic Saez sign. Acute cholecystitis cannot be excluded. 2. No biliary ductal dilatation. 3. Hepatic steatosis. ACT 112: Negative or not required by law. Electronically signed by: Mark Anthony Turner M.D. 08/15/2020 7:45 AM
[2020-08-15] MEDS ORDERED: HYDROmorphone INJ 2 MG/ML SYR/VIAL ONE (07:54)
[2020-08-15] MEDS ORDERED: KETAMINE 50 MG/5 ML SYRINGE ONE (07:54)
[2020-08-15] MEDS ORDERED: ESMOLOL HCL INJ 10 MG/ML 10ML VIAL IV ONE (08:33)
[2020-08-15] MEDS ORDERED: GLYCOPYRROLATE 0.2 MG/ML VIAL ONE (09:30)
[2020-08-15] MEDS ORDERED: NEOSTIGMINE METHYLSULFATE 5 MG/5 ML SYR ONE (09:30)
--- NOTE | 2020-08-15 10:10 | Post Operative Brief Note ---
PG Immediate Post Op with CF Date of Surgery August 15, 2020 Pre & Post Diagnosis Operation Date: 08/15/20 10:00 Pre-Op Diagnosis: Acute Cholecystitis Post-Op Diagnosis: Acute Cholecystitis I identified the patient and participated in the time-out.: Yes Procedure Operation Date: 08/15/20 10:00 Actual Procedures p Laparoscopic Cholecystectomy(Not Applicable) - Juan Vega DO Surgeon Juan Vega DO System Analyst None Estimated Blood Loss 100 Findings See Below Acutely inflamed, thickened gallbladder with thick dense omental adhesions and fat wrapping Fluids 1000mL crystalloid Specimens Specimen Description: A. Gallbladder Anesthesia Type General Complications none Disposition Disposition: Recovery Room
--- NOTE | 2020-08-15 10:14 | Operative Report ---
PG Post Operative Report Pre & Post Diagnosis Operation Date: 08/15/20 10:00 Pre-Op Diagnosis: Acute Cholecystitis Post-Op Diagnosis: Acute Cholecystitits I identified the patient and participated in the time-out.: Yes Procedure Operation Date: 08/15/20 10:00 Actual Procedures p Laparoscopic Cholecystectomy(Not Applicable) - Juan Vega DO Surgeon Juan Vega DO Head Machine Feeder None Estimated Blood Loss 100 Findings See Below Acutely inflamed, thickened gallbladder with thick dense omental adhesions and fat wrapping Fluids 1000mL crystalloid Specimens Gallbladder to pathology Drains None Anesthesia Type General Complications none Disposition Disposition: Recovery Room Indications 29 yo female with clinical and sonographic findings of acute cholecystitis Description of Procedure The patient was brought to the operating room and placed in the supine position with both arms extended. At this time she underwent general endotracheal anesthesia without any problems. She was given appropriate pre-operative antibiotics. Her abdomen prepped and draped in the usual sterile fashion. A timeout was called, the procedure was verified as Laparoscopic cholecystectomy, possible open, possible intra-operative cholangiogram. Surgical, nursing and anesthesia teams agreed and the procedure was begun. After injection of 0.25% Marcaine with epinephrine, a supraumbilical incision was made and carried down to the fascia using S-retractors. The abdominal wall was then elevated with towel clamps and abdomen entered using the Veress needle confirming position using the saline drop test. Pneumoperitoneum was established. 5mm trocar was placed. Laparoscope was introduced. No injury from entry into the abdomen was visualized after inspection of the abdomen. Three further ports were placed under direct visualization. One 11mm in the subxiphoid region and two 5mm in the RUQ. At this time the abdomen was inspected and the gallbladder identified. The gallbladder fundus was grasped and retracted cephalad. The gallbladder appeared thickened, edematous was difficult to manipulate. There were thick, dense omental adhesions to the entire length of the gallbladder and these were lysed with sharp and blunt dissection. The gallbladder infundibulum was then grasped and retracted laterally. The cystic duct and cystic artery were then identified and skeletonized. The critical view of safety was obtained. They were both then clipped twice proximally and once distally and then divided using scissors. The gallbladder was then taken off of the liver bed using electrocautery and placed in an endocatch bag and removed from the subxiphoid port. The liver bed was then inspected and no bile leak or bleeding was evident. The trocars were then removed under direct visualization and no bleeding was present. The subxiphoid port was then closed using 0-Vicryl using the suture passer. Abdomen was desufflated. The skin was then closed using 4-0 Monocryl in a subcuticular fashion. Sterile dressings were applied. Needle and sponge counts were correct x 2. At this time the patient was awoken from anesthesia and extubated having remained stable throughout the entire case. The patient was then transported to PACU in stable condition. I attest to the content of the Intraoperative Record and any orders documented therein. Any exceptions are noted below.
--- NOTE | 2020-08-15 11:17 | Anesthesiology Progress Note ---
Date of Service August 15, 2020 Anesthesia Post Procedure Vital Signs Vital Signs: Temp Pulse Pulse Pulse Resp BP BP 08/15/20 11:12 37.3 C 64 16 125/82 08/15/20 11:00 61 14 08/15/20 10:50 37 C 69 14 08/15/20 10:40 64 16 08/15/20 10:30 63 16 08/15/20 10:23 37.2 C 76 16 08/15/20 07:19 36.9 C 85 16 08/15/20 07:12 36.9 C 64 18 130/76 08/15/20 01:13 37.3 C 73 16 154/96 H 08/15/20 00:30 127/78 08/15/20 00:20 08/15/20 00:10 08/15/20 00:00 08/14/20 23:45 08/14/20 23:30 129/74 08/14/20 23:15 08/14/20 23:00 118/66 08/14/20 22:45 08/14/20 22:30 108/70 08/14/20 22:20 08/14/20 22:19 81 21 144/90 H 144/90 H 08/14/20 21:31 58 L 26 H 08/14/20 21:30 64 27 H 164/107 H 08/14/20 21:15 57 L 20 08/14/20 21:00 58 L 22 159/90 H 08/14/20 20:47 65 14 08/14/20 20:45 69 16 158/85 H 08/14/20 19:56 72 18 157/103 H 08/14/20 19:39 37 C 78 18 166/100 H BP Pulse Ox 08/15/20 11:12 98 08/15/20 11:00 138/83 100 08/15/20 10:50 150/76 H 99 08/15/20 10:40 121/80 98 08/15/20 10:30 159/79 H 100 08/15/20 10:23 153/85 H 100 08/15/20 07:19 133/80 97 08/15/20 07:12 95 08/15/20 01:13 97 08/15/20 00:30 96 08/15/20 00:20 93 08/15/20 00:10 93 08/15/20 00:00 95 08/14/20 23:45 94 08/14/20 23:30 94 08/14/20 23:15 94 08/14/20 23:00 96 08/14/20 22:45 94 08/14/20 22:30 93 08/14/20 22:20 95 08/14/20 22:19 97 08/14/20 21:31 95 08/14/20 21:30 96 08/14/20 21:15 95 08/14/20 21:00 94 08/14/20 20:47 97 08/14/20 20:45 96 08/14/20 19:56 98 08/14/20 19:39 97 Pain Intensity Abdomen: Pain Intensity: 2 Transfer of Care Handoff Completed per policy Notes Mental Status: alert / awake / arousable Patient Amnestic to Procedure: Yes Nausea / Vomiting: adequately controlled Pain: adequately controlled Airway Patency, RR, SpO2: stable & adequate BP & HR: stable & adequate Hydration State: stable & adequate Anesthetic Complications: no major complications apparent and Pt Satisfied with anesthetic care
--- NOTE | 2020-08-15 16:28 | Electrocardiogram Report ---
Test Reason : Blood Pressure : / mmHG Vent. Rate : 057 BPM Atrial Rate : 057 BPM P-R Int : 164 ms QRS Dur : 070 ms QT Int : 404 ms P-R-T Axes : 046 051 044 degrees QTc Int : 393 ms Sinus bradycardia with sinus arrhythmia Otherwise normal ECG When compared with ECG of 13-AUG-2020 08:16, No significant change was found Confirmed by David Murphy ([id number]) on 08/15/2020 4:28:11 PM Referred By: REFERRED SELF Confirmed By:Jean Murphy
[2020-08-15] MEDS: oxyCODONE HCL IR 5 MG TAB (IMMEDIATE RELEASE) PO PRN ×2 (17:53→22:08)
[2020-08-16] MEDS: metroNIDAZOLE 500 MG/100 ML BAG IV SCH (01:42)
[2020-08-16] MEDS: oxyCODONE HCL IR 5 MG TAB (IMMEDIATE RELEASE) PO PRN ×3 (02:10→13:03)
[2020-08-16] MEDS: MoRPHine SULFATE 4 MG/ML 1 ML CARP\\VIAL IV PRN ×3 (02:52→09:54)
[2020-08-16] MEDS: CIPROFLOXACIN / D5W 400 MG/200 ML BAG IV SCH (02:54)
--- NOTE | 2020-08-16 05:23 | Surgery Progress Note ---
Date of Service August 16, 2020 Assessment & Plan (1) Cholelithiasis: Postop day #1 laparoscopic cholecystectomy Continue analgesics Continue antiemetics We will advance to regular diet If diet advancement tolerated will discharge home later today If patient remains hospitalized today we will initiate subcutaneous heparin for DVT prevention Admission and Anticipated Discharge Date Admission Date: August 14, 2020 Supervising Physician Co-Signing Physician Notes I personally saw and evaluated the patient with Edgar Ayala PA-C and agree with the assessment and plan. 29 yo female POD#1 laparoscopic cholecystectomy for acute cholecystitis -Advance diet as tolerated -D/C ABX -If tolerates diet, ok to discharge home today Subjective Patient reports some postoperative pain but is overall improved since surgery. Since her surgery she has tolerated full liquids. She reports having small BM since surgery and is also passing flatus. She denies any nausea vomiting. She denies any fevers, shakes, chills. No shortness of breath. Physical Exam Gastrointestinal (Abdomen): Pain noted with palpation near surgical incisions. Results & Data ([facility]) Vital Signs (Past 12 Hours) Vital Signs Temp Pulse Resp BP BP Pulse Ox 08/16/20 02:48 37.1 C 67 16 130/76 94 08/15/20 20:28 36.6 C 84 18 132/75 94 PG Care Time/CCT Total # of Minutes Spent Total Time Spent with Patient: Total time spent is greater than 50% in coordination of care (as documented) at patient's floor/unit and/or counseling patient: Coding Level of Care Code None Diagnoses Cholelithiasis K80.00 Biliary obstruction: without biliary obstruction Cholecystitis acuity: acute Cholecystitis presence: with cholecystitis Cholelithiasis location: gallbladder (1) Cholelithiasis Biliary obstruction: without biliary obstruction Cholecystitis acuity: acute Cholecystitis presence: with cholecystitis Cholelithiasis location: gallbladder Qualified Code(s): K80.00 - Calculus of gallbladder with acute cholecystitis without obstruction
== END 2020-08-16 14:41 | disposition home or self-care (01) ==
LOC: 3W 19:34 → ED 19:34 → 3W 08-15 00:38
DX: Z88.0 Allergy status to penicillin; Z79.899 Other long term (current) drug therapy; F17.210 Nicotine dependence, cigarettes, uncomplicated; K80.00 Calculus of gallbladder with acute cholecystitis without obstruction; Z91.040 Latex allergy status; Z88.2 Allergy status to sulfonamides